=== PATIENT | male | born 1970 | race Caucasian/White ===

== ENCOUNTER 2022-09-12 15:54 | Inpatient (IN) | payer OTHER, SELFPAY ==
--- NOTE | 2022-09-12 | ECG_ITS ---
Test Reason : PRE OP Blood Pressure : / mmHG Vent. Rate : 064 BPM Atrial Rate : 064 BPM P-R Int : 190 ms QRS Dur : 102 ms QT Int : 400 ms P-R-T Axes : 051 -06 025 degrees QTc Int : 412 ms Normal sinus rhythm Moderate voltage criteria for LVH, may be normal variant ( R in aVL , [place] product ) Borderline ECG No previous ECGs available Referred By: Lubna Gutierrez Electronically Signed By:MAYA KOHLI
--- NOTE | ~2022-09-12 | US_ITS ---
EXAMINATION: US VENOUS ULTRASOUND WITH DOPPLER LOWER EXTREMITY, LEFT CLINICAL INFORMATION: Edema COMPARISON: None available. TECHNIQUE: Ultrasound of the deep veins is performed from the hip to the calf with compression sonography and color and pulse Doppler assessment. Spectral analysis with color-flow imaging is performed. FINDINGS: Extensive occlusive deep venous thrombosis is noted extending from the proximal femoral vein, to the popliteal vein and calf veins. US/US venous duplex LE LT IMPRESSION: Extensive occlusive deep venous thrombosis is noted extending from the proximal femoral vein, to the popliteal vein and calf veins. These critical results were discussed with Isamar Crocker NP by telephone at 09/12/2022 5:24 PM and it was ascertained that the content and urgency of the report was understood at the time of direct communication.
--- NOTE | ~2022-09-12 | XR_ITS ---
EXAMINATION: XR CHEST CLINICAL INFORMATION: Likely surgical procedure tomorrow for DVT COMPARISON: None available. TECHNIQUE: Frontal view of the chest was obtained. FINDINGS: The lungs are clear with no focal consolidation. No evidence of pneumothorax, pulmonary edema, or pleural effusions. The cardiomediastinal silhouette is unremarkable. No acute osseous findings. XR/XR chest 1V IMPRESSION: No acute cardiopulmonary findings.
[2022-09-12 16:01] VITALS: BP 158/96; PULSE 84; RESP 16; TEMP 36.7; O2SAT 96; BMI 21.5
--- NOTE | 2022-09-12 16:01 | ED.GENADULT ---
HPI - General Adult General Chief complaint: Extremity Injury, Lower Stated complaint: deep vein thrombosis on left leg? Time Seen by Provider: 09/12/22 16:48 Source: patient and RN notes reviewed Mode of arrival: ambulatory Limitations: no limitations History of Present Illness HPI narrative: This is a 52-year-old male, with a past medical history hemochromatosis and hypertension, presenting to the emergency department for evaluation of left calf pain x1 week. Patient reports that on August 17 he woke up and had some pain in his left ankle, which he attributed to self diagnosed Achilles tendinitis as he is very active, walking many miles, cycling, and running often. He has been seen by Physical therapy as well as his primary care physician for this. He states that about 1 week ago after having a 3 hour car ride to and from [place] he has had worsening pain, and swelling in his left calf. Patient denies any chest pain or shortness of breath. No history of personal DVT or PE in the past. He states that his family has an extensive history of pulmonary embolisms and DVTs. He is unsure if he or anyone in his family has clotting disorder. He also reports recent travel to and from [place] in July. No other complaints or concerns at this time. MD complaint: Left calf pain/swelling Location: lower extremity Radiation: non-radiation Severity: moderate Quality: aching Pain Consistency: constant Relieving factors: none Exacerbating factors: none Associated symptoms: denies other symptoms Treatments prior to arrival: none Related Data Home Medications Medication Instructions Recorded Confirmed amlodipine 2.5 mg tablet 2.5 mg PO DAILY 10/27/20 cetirizine 10 mg capsule (Zyrtec) 10 mg PO DAILY PRN 10/27/20 tamsulosin 0.4 mg capsule (Flomax) 0.4 mg PO DAILY 10/27/20 Allergies Allergy/AdvReac Type Severity Reaction Status Date / Time No Known Allergies Allergy Unverified 11/01/19 19:04 [No Known Allergies*] Review of Systems Review of Systems: Yes all other systems are reviewed and are negative Constitutional: Constitutional: Reports as per HPI [facility] Past Medical History Medical History (Updated 09/12/22 @ 18:32 by OFELIA Martins) Nephrolithiasis, uric acid Social History Social History Advance Directives: No Advance Directives Information Provided: Yes Physical Exam ED Vital Signs: Vital Signs - 24 hr 09/12/22 16:01 09/12/22 18:36 Temperature 98.1 F 97.6 F Pulse Rate 84 74 Respiratory Rate 16 18 Blood Pressure 158/96 H 151/86 H Pulse Oximetry 96 98 Oxygen Delivery Method Room Air BMI result Body Mass Index 22.0 Const General: cooperative, comfortable and no acute distress Orientation/consciousness: patient oriented x3 Limitations: no limitations HENMT Head: Yes normal to inspection, Yes normocephalic and Yes atraumatic Ears: hearing grossly normal bilaterally General nose exam: Normal external nose present Face and sinus: Yes normal facial exam Mouth: Normal oral and palatal mucosa present, oropharynx normal and moist mucous membranes Throat: Yes posterior oropharynx normal Eyes General: appearance normal, both eyes and all related structures Eyelids: Yes eyelids normal Conjunctivae: conjunctivae normal Sclerae: sclerae normal Pupils: Equal, round and reactive pupils present EOM: EOMs intact bilaterally Neck Neck: Yes normal visual inspection, Yes full ROM and Yes no lymphadenopathy Lymphatic: no lymphadenopathy noted Chest Chest palpation & inspection: normal inspection of the chest Resp Effort & Inspection: normal respiratory effort and able to speak in complete sentences Auscultation: clear to auscultation bilaterally, no crackles, no rales, no rhonchi and no wheezes Cardio Rate: regular rate Rhythm: regular rhythm Heart sounds: S1 normal heart sound present and S2 normal heart sound present GI Inspection: Yes normal to inspection Skin General skin exam: no rashes or lesions noted Trauma: no lacerations or abrasions Wounds: no wounds Neuro General: patient oriented x3 and moves all extremities Cranial nerves: Yes Equal, round and reactive pupils present Extrem Other: Left calf with diffuse tenderness throughout, left calf is very swollen compared to the left, no palpable cords. Positive Homans sign General: Yes normal to inspection Right upper extremity: normal to inspection Left upper extremity: normal to inspection Right lower extremity: normal to inspection Left lower extremity: normal to inspection Course Course Course Narrative: This is rapid medical exam. Deferred additional HPI, ROS, PE to primary provider. 52 yo make here with left leg swelling x 1week. Diagnosed with achilles tendinopathy 2 weeks ago. However, one week ago went on several hour car ride and now has swelling and pain. Has family history of DVT Will check labs, US VSS Reevaluation(s) Reevaluation #1: Received critical result of extensive DVT extending from the proximal femoral vein to the popliteal vein and calf veins. Discussed case with Dr. Vega, who states that patient may be a good candidate for clot retrieval. Recommend starting heparin drip and admit to Medicine. I discussed this with patient and fiancee at bedside. All questions were answered. Patient agrees to hospital admission. Transfer of care initiated. Time: 17:36 Reevaluation #2: Spoke to hospitalist, Dr. Maradiaga for initiation and transfer of care. Time: 18:30 Medications Administered Generic Name Dose Route Start Last Admin Trade Name Freq PRN Reason Stop Dose Admin Heparin Sodium/Sodium Chloride 25,000 unit in 250 mls @ 0 mls/hr 09/12/22 19:30 09/12/22 19:38 Heparin Sodium,Porcine/1/2ns IVCONT 14 units/kg/hr .Q0M BREE 11.16 mls/hr Administration Protocol Per Protocol Discontinued Medications Generic Name Dose Route Start Last Admin Trade Name Freq PRN Reason Stop Dose Admin Heparin Sodium (Porcine) 6,200 unit 09/12/22 18:20 09/12/22 19:35 Heparin Sodium,Porcine 5,000 Unit/Ml Vial 80 unit/kg (6200 unit) 09/12/22 18:21 6,200 unit IVPUSH Administration ONCE ONE Medical Decision Making Medical Decision Making [facility] Narrative: 52-year-old male presenting to the emergency department for evaluation left calf pain and swelling x1 week. Patient has had ongoing intermittent lower leg cramping and pain since August 17. Patient has no chest pain or shortness of breath. On arrival, vital signs within normal limits. Left calf obviously edematous, no palpable cords, positive Homans sign. Physical exam findings concerning for DVT. Plan labs, ultrasound LLE Differential Diagnosis Differential Diagnoses: The differential diagnosis associated with the presentation includes DVT, contusion, hematoma, cellulitis Admission/Observation Consideration of admission/observation: Escalation of care including admission/observation considered Patient will be admitted secondary to extensive DVT noted on ultrasound. Lab Data [facility] Lab Attestation statement: I reviewed the patient's lab results. No leukocytosis, stable H&H 09/12/22 16:28 09/12/22 16:28 Labs: Lab Results 09/12/22 09/12/22 09/12/22 Range/Units 16:28 16:28 16:28 WBC 7.7 (4.8-10.8) X10*3/uL RBC 4.53 L (4.60-5.80) X10*6/uL Hgb 14.9 (14.0-18.0) g/dl Hct 42.6 (42.0-52.0) % MCV 94.0 (80.0-98.0) fL MCH 32.9 (27.0-33.0) pg MCHC 35.0 (31.0-36.0) g/dl RDW 11.9 (11.0-16.0) % Plt Count 205 (160-400) X10*3/uL MPV 10.7 (9.4-12.4) fL Immature Gran % (Auto) 0.3 (0.0-0.4) % Neut % (Auto) 66.5 (45-73) % Lymph % (Auto) 19.7 L (20-40) % [place] % (Auto) 10.4 (2-11) % Eos % (Auto) 2.7 (0-4) % Baso % (Auto) 0.4 (0-2) % Lymph # (Auto) 1.5 (1.2-4.9) X10*3/uL [place] # (Auto) 0.8 (0.1-1.2) X10*3/uL Eos # (Auto) 0.2 (0.0-0.4) X10*3/uL Baso # (Auto) 0.0 (0.0-0.2) X10*3/uL Abs Immat Gran (auto) 0.02 (0.00-0.03) X10*3/uL Absolute Neuts (auto) 5.1 (2.0-8.3) x10*3/uL Absolute Nucleated RBC 0.000 (0.0-0.012) X10*3/uL Nucleated RBC % (auto) 0.0 (0.0-0.2) /100WBC PT 12.9 (11.1-13.3) SEC INR 1.1 (0.9-1.1) APTT 35.7 (26.0-36.4) SEC aPTT Heparin Protocol (53-77.9) SEC Sodium 141 (135-145) mmol/L Potassium 3.9 (3.3-5.1) mmol/L Chloride 106 (96-108) mmol/L Carbon Dioxide 23 (22-29) mmol/L Anion Gap 16 (12-20) BUN 13 (9-16) mg/dL Creatinine 0.81 (0.5-1.4) mg/dL Estim Creat Clear Calc 117.7 Estimated GFR > 60 Random Glucose 111 (60-115) mg/dL Calcium 10.1 (8.4-10.2) mg/dL Total Bilirubin 0.5 (0.0-1.0) mg/dL Direct Bilirubin 0.2 (0.0-0.5) mg/dL AST 17 (5-37) U/L ALT 14 (0-40) U/L Alkaline Phosphatase 57 (39-117) U/L Total Protein 6.8 (6.5-8.0) g/dL Albumin 4.1 (3.5-5.0) g/dL 09/12/22 09/12/22 09/12/22 Range/Units 18:46 18:46 18:46 WBC 9.0 (4.8-10.8) X10*3/uL RBC 4.57 L (4.60-5.80) X10*6/uL Hgb 14.9 (14.0-18.0) g/dl Hct 42.4 (42.0-52.0) % MCV 92.8 (80.0-98.0) fL MCH 32.6 (27.0-33.0) pg MCHC 35.1 (31.0-36.0) g/dl RDW 11.9 (11.0-16.0) % Plt Count 214 (160-400) X10*3/uL MPV 10.8 (9.4-12.4) fL Immature Gran % (Auto) (0.0-0.4) % Neut % (Auto) (45-73) % Lymph % (Auto) (20-40) % [place] % (Auto) (2-11) % Eos % (Auto) (0-4) % Baso % (Auto) (0-2) % Lymph # (Auto) (1.2-4.9) X10*3/uL [place] # (Auto) (0.1-1.2) X10*3/uL Eos # (Auto) (0.0-0.4) X10*3/uL Baso # (Auto) (0.0-0.2) X10*3/uL Abs Immat Gran (auto) (0.00-0.03) X10*3/uL Absolute Neuts (auto) (2.0-8.3) x10*3/uL Absolute Nucleated RBC 0.000 (0.0-0.012) X10*3/uL Nucleated RBC % (auto) 0.0 (0.0-0.2) /100WBC PT 12.8 (11.1-13.3) SEC INR 1.1 (0.9-1.1) APTT 33.9 (26.0-36.4) SEC aPTT Heparin Protocol 34.1 L (53-77.9) SEC Sodium (135-145) mmol/L Potassium (3.3-5.1) mmol/L Chloride (96-108) mmol/L Carbon Dioxide (22-29) mmol/L Anion Gap (12-20) BUN (9-16) mg/dL Creatinine (0.5-1.4) mg/dL Estim Creat Clear Calc Estimated GFR Random Glucose (60-115) mg/dL Calcium (8.4-10.2) mg/dL Total Bilirubin (0.0-1.0) mg/dL Direct Bilirubin (0.0-0.5) mg/dL AST (5-37) U/L ALT (0-40) U/L Alkaline Phosphatase (39-117) U/L Total Protein (6.5-8.0) g/dL Albumin (3.5-5.0) g/dL Radiology Impression Discussion of test interpretation with radiology: I have reviewed the radiologist's reading. Radiologist Impression: EXAMINATION:? US VENOUS ULTRASOUND WITH DOPPLER LOWER EXTREMITY, LEFT CLINICAL INFORMATION:? Edema COMPARISON:? None available. TECHNIQUE: Ultrasound of the deep veins is performed from the hip to the calf with compression sonography and color and pulse Doppler assessment. Spectral analysis with color-flow imaging is performed. FINDINGS: Extensive occlusive deep venous thrombosis is noted extending from the proximal femoral vein, to the popliteal vein and calf veins. US/US venous duplex LE LT IMPRESSION: Extensive occlusive deep venous thrombosis is noted extending from the proximal femoral vein, to the popliteal vein and calf veins. ? These critical results were discussed with Isamar Crocker NP by telephone at 09/12/2022 5:24 PM and it was ascertained that the content and urgency of the report was understood at the time of direct communication. ? ? Dictated By: Aleksandra Diamond MD Signed By: <Electronically signed by Aleksandra Diamond MD in OV> 09/12/22 1725 DD/ 1645 TD/TT:? 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 Time includes review of lab data, radiology results, discussion with consultants, and monitoring for potential decompensation. Intervention performed as documented. Discharge Plan Discharge Clinical Impression: DVT (deep venous thrombosis) Patient Disposition: Admitted As Inpatient
[2022-09-12 16:34] LABS: MANUAL DIFF FLAG NO
[2022-09-12 16:36] LABS: Basophils Percent Auto 0.4 % (0-2); Eosinophils Absolute Auto 0.2 X10*3/uL (0.0-0.4); Eosinophils Percent Auto 2.7 % (0-4); Hematocrit 42.6 % (42.0-52.0); Hemoglobin 14.9 g/dl (14.0-18.0); Imm Gran Abs Auto 0.02 X10*3/uL (0.00-0.03); Imm Gran Pct Auto 0.3 % (0.0-0.4); Lymphocytes Absolute Auto 1.5 X10*3/uL (1.2-4.9); Lymphocytes Percent Auto 19.7 % (20-40); Mean Corpuscular Hemoglobin 32.9 pg (27.0-33.0); Mean Platelet Volume 10.7 fL (9.4-12.4); Monocytes Absolute Auto 0.8 X10*3/uL (0.1-1.2); Monocytes Percent Auto 10.4 % (2-11); Neutrophils Absolute Auto 5.1 x10*3/uL (2.0-8.3); Neutrophils Percent Auto 66.5 % (45-73); Platelet Count 205 X10*3/uL (160-400); Red Blood Count 4.53 X10*6/uL (4.60-5.80); Red Cell Distribution Width 11.9 % (11.0-16.0); White Blood Count 7.7 X10*3/uL (4.8-10.8)
[2022-09-12 16:41] LABS: INTERNATIONAL NORM RATIO 1.1 (0.9-1.1); Prothrombin Time 12.9 SEC (11.1-13.3)
[2022-09-12 16:56] LABS: Alanine Aminotransferase 14 U/L (0-40); Albumin Level 4.1 g/dL (3.5-5.0); Alkaline Phosphatase 57 U/L (39-117); Anion Gap 16 (12-20); Aspartate Amino Transferase 17 U/L (5-37); Bilirubin Direct 0.2 mg/dL (0.0-0.5); Bilirubin Total 0.5 mg/dL (0.0-1.0); Blood Urea Nitrogen 13 mg/dL (9-16); Calcium 10.1 mg/dL (8.4-10.2); Carbon Dioxide 23 mmol/L (22-29); Chloride 106 mmol/L (96-108); Creatinine Clr Calc Pharmacy 117.7; Estimated Glomerular Filt Rate > 60; Glucose Random 111 mg/dL (60-115); Potassium 3.9 mmol/L (3.3-5.1); Sodium 141 mmol/L (135-145); Total Protein 6.8 g/dL (6.5-8.0)
--- NOTE | 2022-09-12 17:43 | PC.NURSE ---
REPORT GIVEN TO RU Hickman RN PT TO BE MOVED TO ED 19
[2022-09-12 18:31] LABS: Partial Thromboplastin Time 35.7 SEC (26.0-36.4)
[2022-09-12 18:36] VITALS: BP 151/86; PULSE 74; RESP 18; TEMP 36.4; O2SAT 98
--- NOTE | 2022-09-12 18:47 | P.HPHOSP_ITS ---
Patient seen and examined at bedside. I agree with KYRIE assessment and plan. Patient comes in with DVT. No concern for PE at this time. Patient being seen by vascular surgery in a.m. for clot removal. Continue anticoagulation. For full H&P please see below History of Present Illness Date of Service: 09/12/22 Attending physician on admission: Martinez Rizo Chief Complaint: Left calf pain Pt is a 52-year-old male with a PMH significant for?hemochromatosis, HTN, BPH, and seasonal allergies who presents to the ED with?worsening left calf pain for the past week. Patient began having left lower extremity pain on August 17 when he noticed tenderness to his lower left calf. No noticeable swelling. Patient is an avid cyclist who cycles between 8,000-9,000 miles per year and walks 50-100 miles per month. Patient thought that he over did it and self diagnosed with Achilles tendinitis. Patient continue to cycle and be active with only minor limitations. Ten days later on 08/27 patient saw a nurse practitioner at his primary care provider's office who also diagnosed him with Achilles tendinitis and referred him to physical therapy. His first PT appointment was on . Patient also reports on Tuesday he drove 3 hours to [place] and then back 3 hours the next day. After that drive he experienced noticeable swelling and increased pain in his left calf. Of note patient has extensive family history of clotting disorders: His father had a PE, and his mother, sister, maternal grandmother, and maternal great and all had DVTs. Apparently his sister and mother have had workup for clotting disorders but with no formal diagnoses. He otherwise has no acute medical complaints at this time. Patient denies shortness of breath or pleuritic chest pain. Denies chest pain/pressure, palpitations. No fever, chills, nausea, vomiting, diarrhea, abdominal pain. No history of smoking. In the ED pt was afebrile but slightly hypertensive, at 158/96 satting at 98% on RA. Labs were grossly unremarkable. Venous duplex ultrasound of left lower leg phone extensive occlusive DVT extending from proximal femoral vein to the popliteal vein and calf veins. Pt was treated with heparin drip and vascular surgery consulted, who thought patient might be a candidate for clot retrieval. Pt will be admitted to the hospital for treatment of left DVT with heparin drip and likely surgical procedure. Review of Systems Review of Systems: Left calf swelling and tenderness Left Achilles tendon tenderness Denies shortness of breath Note pleuritic chest pain Denies chest pain/pressure, palpitations No fever, chills, nausea, vomiting, diarrhea, abdominal pain Yes all other systems are reviewed and are negative [facility] Medical History Nephrolithiasis, uric acid Social History Advance Directives: No Advance Directives Information Provided: Yes Meds Allergies Allergy/AdvReac Type Severity Reaction Status Date / Time No Known Allergies Allergy Unverified 11/01/19 19:04 [No Known Allergies*] Active Medications: Current Medications Heparin Sodium (Porcine) (Heparin Sodium,Porcine 5,000 Unit/Ml Vial) 3,100 unit 40 unit/kg (3100 unit) IVPUSH PROTOCOL BOLUS PRN; Protocol PRN Reason: 40 unit/kg - Heparin Protocol Heparin Sodium (Porcine) (Heparin Sodium,Porcine 5,000 Unit/Ml Vial) 6,200 unit 80 unit/kg (6200 unit) IVPUSH PROTOCOL BOLUS PRN; Protocol PRN Reason: 80 unit/kg - Heparin Protocol Heparin Sodium/Sodium Chloride (Heparin Sodium,Porcine/1/2ns) 25,000 unit in 250 mls @ 0 mls/hr IVCONT .Q0M BREE; Protocol Pharmacy Consult (Consult Rx Perform Med Rec) 1 each MISCELLANE ONCE PRN PRN Reason: Consult order Home Medications Medication Instructions Recorded Confirmed Last Taken Type amlodipine 2.5 mg tablet 2.5 mg PO DAILY 10/27/20 Unknown History cetirizine 10 mg capsule (Zyrtec) 10 mg PO DAILY PRN 10/27/20 Unknown History tamsulosin 0.4 mg capsule (Flomax) 0.4 mg PO DAILY 10/27/20 Unknown History Physical Exam Vital Signs and Narrative: Vital Signs: Last Vital Signs Temp 97.6 F 09/12/22 18:36 Pulse 74 09/12/22 18:36 Resp 18 09/12/22 18:36 BP 151/86 H 09/12/22 18:36 Pulse Ox 98 09/12/22 18:36 O2 Del Method Room Air 09/12/22 16:01 BMI result Body Mass Index 21.5 General: AOx3, no acute distress Resp: CTA bilaterally CVS: S1, S2, RRR GI: +BS, NT, no distention Skin: No rash Neuro: Cranial nerves II-XII grossly intact bilaterally. Motor grossly intact bilaterally Extremities: Left calf swelling and tenderness. Psych: Appropriate affect Results Labs 09/12/22 16:28 09/12/22 16:28 Labs: Laboratory Results - last 24 hr 09/12/22 09/12/22 09/12/22 16:28 16:28 16:28 MCV 94.0 MCH 32.9 MCHC 35.0 RDW 11.9 Plt Count 205 MPV 10.7 Immature Gran % (Auto) 0.3 Neut % (Auto) 66.5 Lymph % (Auto) 19.7 L [place] % (Auto) 10.4 Eos % (Auto) 2.7 Baso % (Auto) 0.4 Lymph # (Auto) 1.5 [place] # (Auto) 0.8 Eos # (Auto) 0.2 Baso # (Auto) 0.0 Abs Immat Gran (auto) 0.02 Absolute Neuts (auto) 5.1 Absolute Nucleated RBC 0.000 Nucleated RBC % (auto) 0.0 PT 12.9 INR 1.1 APTT 35.7 Anion Gap 16 Estim Creat Clear Calc 117.7 Estimated GFR > 60 Random Glucose 111 Calcium 10.1 Total Bilirubin 0.5 Direct Bilirubin 0.2 AST 17 ALT 14 Alkaline Phosphatase 57 Total Protein 6.8 Albumin 4.1 Imaging Radiologist's Impressions: Impressions Venous Duplex 09/12/22 16:45 IMPRESSION: Extensive occlusive deep venous thrombosis is noted extending from the proximal femoral vein, to the popliteal vein and calf veins. These critical results were discussed with Isamar Crocker NP by telephone at 09/12/2022 5:24 PM and it was ascertained that the content and urgency of the report was understood at the time of direct communication. Assessment and Plan (1) DVT (deep venous thrombosis): Status: Acute Plan t is a 52-year-old male with a PMH significant for?hemochromatosis, HTN, BPH, and seasonal allergies who presents to the ED with?worsening left calf pain for the past week. Patient will be admitted to the hospital for treatment of left DVT with heparin drip and likely surgical procedure. DVT of left lower extremity Venous duplex ultrasound found extensive occlusive DVT extending from proximal femoral vein to popliteal vein and calf veins Unclear etiology: pt is very active, cycles 8-9,000 miles each year, walks 50- 100 miles a month Most likely has a hereditary component: father had PE, mother, sister, maternal grandmother, maternal aunt all had DVTs Pt not complaining of pleuritic chest pain, no SOB, not tachycardic: PE unlikely, CTA not indicated Pt placed on heparin drip, will continue Vascular surgery consult Monitor on telemetry NPO after midnight Will check EKG, CXR HTN Continue amlodipine Seasonal allergies Continue cetirizine BPH Continue tamsulosin Full Code Attending:?Dr. Rizo DVT Prophylaxis: Pt of heparin drip Pt will require a hospitalization of at least two nights for treatment of?left DVT with heparin drip and surgical procedure. Time Spent With Patient Time: Total time managing care of this patient today ____ minutes. Quality Stroke Does the patient have a stroke diagnosis?: No VTE Prior VTE?: No VTE Risk Level:: Medical - moderate - high VTE Device Contraindication: Treatment Not Indicated VTE Drug Contraindication: N/A - Med Ordered
[2022-09-12 18:52] VITALS: BMI 22.0
[2022-09-12 19:11] LABS: INTERNATIONAL NORM RATIO 1.1 (0.9-1.1); Prothrombin Time 12.8 SEC (11.1-13.3)
[2022-09-12 19:13] LABS: PTT Heparin Drip 34.1 SEC (53-77.9)
[2022-09-12 19:14] LABS: Partial Thromboplastin Time 33.9 SEC (26.0-36.4)
[2022-09-12 19:22] LABS: Hematocrit 42.4 % (42.0-52.0); Hemoglobin 14.9 g/dl (14.0-18.0); Mean Corpuscular HGB Conc 35.1 g/dl (31.0-36.0); Mean Corpuscular Hemoglobin 32.6 pg (27.0-33.0); Mean Corpuscular Volume 92.8 fL (80.0-98.0); Mean Platelet Volume 10.8 fL (9.4-12.4); Platelet Count 214 X10*3/uL (160-400); Red Blood Count 4.57 X10*6/uL (4.60-5.80); Red Cell Distribution Width 11.9 % (11.0-16.0)
[2022-09-12] MEDS: Heparin Sodium,Porcine 5,000 UNIT/ML VIAL 6200 UNIT IVPUSH (19:35)
[2022-09-12] MEDS: Heparin Sodium,Porcine/1/2NS 25,000 UNIT/250 ML IV.SOLN 11.16 UNIT IVCONT (19:38)
--- NOTE | 2022-09-12 20:23 | PC.NURSE ---
pt aox4, ambulatory. reporting no pain at this time. heparin drip and bolus given per protocol. PTT HD redraw ordered. will CTM
[2022-09-13] VITALS (10 sets, daily range): BP systolic 135–159; BP diastolic 75–92; PULSE 61–79; RESP 16–20; TEMP 36.1–37.2; O2SAT 93–97; BMI 22.0
[2022-09-13 02:10] LABS: PTT Heparin Drip 108.6 SEC (53-77.9)
--- NOTE | 2022-09-13 02:24 | PC.NURSE ---
Rn received critical PTT from lab, reported it to Hospitalist and paused the pt's heparin drip per protocol. RN called Admitting nurse to make her aware as report had been already been given. RN reviewed heparin protocol with admitting RN to make her aware of protocol regarding PTTs >108 and she verbalized understanding. RN to escort pt up to floor with EDT to review pump with RN.
[2022-09-13 03:59] LABS: PTT Heparin Drip 48.9 SEC (53-77.9)
--- NOTE | 2022-09-13 07:05 | PHA.MEDREC ---
Pharmacy Consult ? Medication Reconciliation Pharmacy has reviewed the medication reconciliation done by RN.
[2022-09-13 07:09] LABS: Hematocrit 43.4 % (42.0-52.0); Hemoglobin 15.1 g/dl (14.0-18.0); Mean Corpuscular HGB Conc 34.8 g/dl (31.0-36.0); Mean Corpuscular Hemoglobin 32.8 pg (27.0-33.0); Mean Corpuscular Volume 94.1 fL (80.0-98.0); Mean Platelet Volume 10.7 fL (9.4-12.4); Platelet Count 215 X10*3/uL (160-400); Red Blood Count 4.61 X10*6/uL (4.60-5.80); Red Cell Distribution Width 11.9 % (11.0-16.0)
[2022-09-13 07:10] LABS: Hematocrit 42.3 % (42.0-52.0); Hemoglobin 14.8 g/dl (14.0-18.0); Mean Corpuscular Hemoglobin 32.5 pg (27.0-33.0); Mean Corpuscular Volume 92.8 fL (80.0-98.0); Mean Platelet Volume 10.5 fL (9.4-12.4); Platelet Count 196 X10*3/uL (160-400); Red Blood Count 4.56 X10*6/uL (4.60-5.80); Red Cell Distribution Width 11.9 % (11.0-16.0); White Blood Count 7.5 X10*3/uL (4.8-10.8)
[2022-09-13 07:13] LABS: INTERNATIONAL NORM RATIO 1.1 (0.9-1.1); Prothrombin Time 13.4 SEC (11.1-13.3)
[2022-09-13 07:22] LABS: Anion Gap 17 (12-20); Blood Urea Nitrogen 11 mg/dL (9-16); Carbon Dioxide 23 mmol/L (22-29); Chloride 106 mmol/L (96-108); Creatinine Clr Calc Pharmacy 129.8; Estimated Glomerular Filt Rate > 60; Glucose Random 93 mg/dL (60-115); Potassium 3.4 mmol/L (3.3-5.1); Sodium 143 mmol/L (135-145)
--- NOTE | 2022-09-13 08:48 | MHC.CM.PN ---
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 Home/self care is the goal and CM has initiated and will follow for dc planning. Patient is brenda corral'maureen x5 and his PCP is Dr. Vicky Spear.
[2022-09-13] MEDS: 0.9 % Sodium Chloride Flush 3 ML SYRINGE IVFLUSH ×2 (09:25→20:18)
[2022-09-13] MEDS: 0.9 % Sodium Chloride 1,000 ML 100 ML IVCONT ×2 (09:25→20:16)
--- NOTE | 2022-09-13 10:22 | PM.CNGS ---
History of Present Illness Consult details Consult date: 09/13/22 Reason for consult: other (DVT) Narrative: Very pleasant 52-year-old gentleman presents to the emergency room yesterday with acute onset DVT. Upon discussion with him he actually relates this back to an event when he was in [place] over August 17. He had done an extensive amount of walking and bike riding. He reports some sort of left Achilles discomfort. He had continued to exercise and walk in particular bike riding since that time. He did have a car ride back and forth during that. But seem to be doing okay. On the he had driven about 2-3 hours down to [place] and on return he noticed increased discomfort of the left lower extremity and swelling. He had observed it for several days and then this past Tuesday decided to come to the emergency room. At that time it was discovered that he had a DVT which was quite extensive from the calf on up in to the proximal femoral region. He was started on a heparin drip in subsequently admitted. Of note has sister mother and grandmother rich have prior in addition father with a of pulmonary embolism. Review of Systems Constitutional: Constitutional: Reports as per HPI ENT: Reports system reviewed and no additional complaints, except as documented Cardiovascular: Cardiovascular: Denies chest pain, Denies chest pain at rest and Denies chest pain with activity Respiratory: Respiratory: Denies chest congestion and Denies cough Gastrointestinal: Gastrointestinal: Reports no additional gastrointestinal complaints Musculoskeletal: Musculoskeletal: Denies abnormal gait Integumentary/Breasts: Skin/Breast: Reports pruritus and Denies wounds Neurologic: Reports system reviewed and no additional complaints, except as documented and Denies abnormal gait Psychiatric: Psychiatric: Denies no additional psychiatric complaints [facility] Past Medical History Medical History Nephrolithiasis, uric acid Social History Social History Household Members: Spouse Housing: House Patient Tobacco Use Status: Never used Tobacco Use of substances other than those prescribed or required for medical reasons: No Currently Displaying Signs/Symptoms of Drug Intoxication Withdrawal: No Any prior treatment program specific to substance use: No Have you been hit, kicked, punched, or otherwise hurt by someone within the past year? If so, by whom?: No Do you feel safe in your current relationship?: Yes Is there a partner from a previous relationship who is making you feel unsafe now?: No Are you made to feel afraid or neglected: No Advance Directives: No Advance Directives Information Provided: Yes Do you have thoughts of harming others: None Do you have a plan to hurt others: No Plan Recently lost weight without trying: No Eating poorly because of decreased appetite: No Nutrition Risks: No Nutritional Risk Poor oral hygiene: No service: No Meds Allergies Allergy/AdvReac Type Severity Reaction Status Date / Time No Known Allergies Allergy Unverified 11/01/19 19:04 [No Known Allergies*] Active Medications: Current Medications Acetaminophen (Acetaminophen 325 Mg Tablet) 650 mg PO Q6H PRN PRN Reason: Pain, Mild (Pain Scale 1-3) Docusate Sodium (Docusate Sodium 100 Mg Capsule) 100 mg PO DAILY PRN PRN Reason: Constipation Heparin Sodium (Porcine) (Heparin Sodium,Porcine 5,000 Unit/Ml Vial) 3,200 unit 40 unit/kg (3200 unit) IVPUSH PROTOCOL BOLUS PRN; Protocol PRN Reason: 40 unit/kg - Heparin Protocol Heparin Sodium (Porcine) (Heparin Sodium,Porcine 5,000 Unit/Ml Vial) 6,400 unit 80 unit/kg (6400 unit) IVPUSH PROTOCOL BOLUS PRN; Protocol PRN Reason: 80 unit/kg - Heparin Protocol Heparin Sodium/Sodium Chloride (Heparin Sodium,Porcine/1/2ns) 25,000 unit in 250 mls @ 0 mls/hr IVCONT .Q0M [facility]; Protocol Last Titration: 09/13/22 04:32 Dose: 10 units/kg/hr, 7.97 mls/hr Sodium Chloride (Ns) 1,000 mls @ 100 mls/hr IVCONT .Q10H [facility] Last Admin: 09/13/22 09:25 Dose: 100 mls/hr Ondansetron HCl (Ondansetron Hcl 4 Mg/2 Ml Vial) 4 mg IVPUSH Q8H PRN PRN Reason: Nausea and Vomiting Pharmacy Consult (Consult Rx Perform Med Rec) 1 each MISCELLANE ONCE PRN PRN Reason: Consult order Sodium Chloride (0.9 % Sodium Chloride Flush 3 Ml Syringe) [facility] Last Admin: 09/13/22 09:25 Dose: 3 ml Home Medications Medication Instructions Recorded Confirmed Last Taken Type amlodipine 2.5 mg tablet 2.5 mg PO DAILY 10/27/20 09/13/22 Unknown History cetirizine 10 mg capsule (Zyrtec) 10 mg PO DAILY PRN Allergy Symptoms 10/27/20 09/13/22 Unknown History Physical Exam Vital Signs: Vital Signs: Last Vital Signs Temp 99.0 F 09/13/22 07:26 Pulse 66 09/13/22 07:26 Resp 19 09/13/22 07:26 BP 153/87 H 09/13/22 07:26 Pulse Ox 96 09/13/22 07:26 O2 Del Method Room Air 09/13/22 07:26 BMI result Body Mass Index 22.0 Const: General: cooperative, healthy appearing and comfortable Orientation/consciousness: oriented to person, oriented to place and oriented to time Neck: Carotids: no bruits Chest: Chest palpation & inspection: normal inspection of the chest and normal palpation of entire chest wall Resp: Effort & Inspection: normal respiratory effort and able to speak in complete sentences Cardio: Rate: regular rate Heart sounds: S1 normal heart sound present and S2 normal heart sound present Peripheral pulses: Peripheral pulses 2+ throughout GI: Inspection: Yes normal to inspection Skin: Other: +2 edema, left greater than right General skin exam: dry skin Neuro: General: oriented to person, oriented to place and oriented to time Extrem: Right lower extremity: full ROM, normal capillary refill and edema Left lower extremity: full ROM, normal capillary refill and edema Psych: Mental Status: mental status grossly normal Results Labs 09/13/22 06:37 09/13/22 05:42 Labs: Abnormal lab results 09/12/22 09/12/22 09/12/22 Range/Units 16:28 18:46 18:46 RBC 4.53 L 4.57 L (4.60-5.80) X10*6/uL Lymph % (Auto) 19.7 L (20-40) % PT (11.1-13.3) SEC aPTT Heparin Protocol 34.1 L (53-77.9) SEC 09/13/22 09/13/22 09/13/22 Range/Units 01:44 03:21 05:42 RBC 4.56 L (4.60-5.80) X10*6/uL Lymph % (Auto) (20-40) % PT (11.1-13.3) SEC aPTT Heparin Protocol 108.6 H* D 48.9 L D (53-77.9) SEC 09/13/22 Range/Units 05:42 RBC (4.60-5.80) X10*6/uL Lymph % (Auto) (20-40) % PT 13.4 H (11.1-13.3) SEC aPTT Heparin Protocol (53-77.9) SEC Short CBC 09/12/22 09/12/22 09/13/22 Range/Units 16:28 18:46 05:42 WBC 7.7 9.0 7.5 (4.8-10.8) X10*3/uL Hgb 14.9 14.9 14.8 (14.0-18.0) g/dl Hct 42.6 42.4 42.3 (42.0-52.0) % Plt Count 205 214 196 (160-400) X10*3/uL 09/13/22 Range/Units 06:37 WBC 8.0 (4.8-10.8) X10*3/uL Hgb 15.1 (14.0-18.0) g/dl Hct 43.4 (42.0-52.0) % Plt Count 215 (160-400) X10*3/uL BMP 09/12/22 09/13/22 16:28 05:42 Sodium 141 143 Potassium 3.9 3.4 Chloride 106 106 Carbon Dioxide 23 23 BUN 13 11 Creatinine 0.81 0.75 Calcium 10.1 10.0 Liver Function 09/12/22 Range/Units 16:28 Total Bilirubin 0.5 (0.0-1.0) mg/dL Direct Bilirubin 0.2 (0.0-0.5) mg/dL AST 17 (5-37) U/L ALT 14 (0-40) U/L Alkaline Phosphatase 57 (39-117) U/L Albumin 4.1 (3.5-5.0) g/dL All other labs normal. Assessment and Plan (1) DVT (deep venous thrombosis): Status: Acute Plan In short patient has acute onset DVT. I did review the imaging and it does appear to be extensive DVT including the tibial veins all the way into the popliteal and femoral. He will require mechanical venous thrombectomy. Risks benefits complications of the procedure were discussed in detail with the patient. He would like to proceed. Will schedule for later today. In addition as an outpatient would recommend Hematology-Oncology evaluation as he does have a positive family history for and recommendations regarding long-term anticoagulation Thank you for allowing us to assist in his care. If there are any questions or concerns please do not hesitate to contact us. Time Spent With Patient Time: Total time managing care of this patient today _60___ minutes. Includes coordination of care between the emergency room, hospitalists and interventional for scheduled procedure. In over 30 minutes was with direct contact upon discussion pathophysiology of the further. Procedures Date of Service Date of Service: 09/13/22
[2022-09-13 10:38] LABS: PTT Heparin Drip 46.6 SEC (53-77.9)
[2022-09-13] MEDS: Heparin Sodium,Porcine 5,000 UNIT/ML VIAL 3200 UNIT IVPUSH (11:01)
--- NOTE | 2022-09-13 12:23 | HO.PM.IMPN ---
Subjective Subjective Date of Service: 09/13/22 Interval History: Seen and evaluated this monfredy reporting pain in LLE feels anxious about surgical intervention tolerating heparin drip no other overnight concerns Review of Systems Review of Systems: Yes all other systems are reviewed and are negative Physical Exam Vital Signs: Vital Signs: Last Vital Signs Temp 98.8 F 09/13/22 11:44 Pulse 78 09/13/22 11:44 Resp 18 09/13/22 11:44 BP 159/87 H 09/13/22 11:44 Pulse Ox 97 09/13/22 11:44 O2 Del Method Room Air 09/13/22 11:44 BMI result Body Mass Index 22.0 Const: Other: Constitutional : Awake, interactive, not in distress Neck : Normal inspection, Supple Cardiovascular : RRR, no JVP, no lower extremity edema Respiratory : good bilateral air entry, no crackles, wheezes or rhonchi Gastrointestinal: soft, lax, Normal bowel sounds, Non tender Skin : Warm, Dry Extremities: LLE swollen, erythema and tenderness up to mid thigh Neurological : Alert & oriented x3, No focal deficit Objective Data Active Medications Acetaminophen (Acetaminophen 325 Mg Tablet) 650 mg PO Q6H PRN PRN Reason: Pain, Mild (Pain Scale 1-3) Amlodipine Besylate (Amlodipine Besylate 2.5 Mg Tablet) 2.5 mg PO DAILY [facility]; Protocol Docusate Sodium (Docusate Sodium 100 Mg Capsule) 100 mg PO DAILY PRN PRN Reason: Constipation Heparin Sodium (Porcine) (Heparin Sodium,Porcine 5,000 Unit/Ml Vial) 3,200 unit 40 unit/kg (3200 unit) IVPUSH PROTOCOL BOLUS PRN; Protocol PRN Reason: 40 unit/kg - Heparin Protocol Last Admin: 09/13/22 11:01 Dose: 3,200 unit Documented By: GABRIELLE Heparin Sodium (Porcine) (Heparin Sodium,Porcine 5,000 Unit/Ml Vial) 6,400 unit 80 unit/kg (6400 unit) IVPUSH PROTOCOL BOLUS PRN; Protocol PRN Reason: 80 unit/kg - Heparin Protocol Heparin Sodium/Sodium Chloride (Heparin Sodium,Porcine/1/2ns) 25,000 unit in 250 mls @ 0 mls/hr IVCONT .Q0M [facility]; Protocol Last Titration: 09/13/22 10:52 Dose: 12 units/kg/hr, 9.56 mls/hr Documented By: GABRIELLE Co-signed By: STEVEN Sodium Chloride (Ns) 1,000 mls @ 100 mls/hr IVCONT .Q10H [facility] Last Admin: 09/13/22 09:25 Dose: 100 mls/hr Documented By: GABRIELLE Loratadine (Loratadine 10 Mg Tablet) 10 mg PO DAILY PRN PRN Reason: Allergy Symptoms Ondansetron HCl (Ondansetron Hcl 4 Mg/2 Ml Vial) 4 mg IVPUSH Q8H PRN PRN Reason: Nausea and Vomiting Pharmacy Consult (Consult Rx Perform Med Rec) 1 each MISCELLANE ONCE PRN PRN Reason: Consult order Sodium Chloride (0.9 % Sodium Chloride Flush 3 Ml Syringe) 3 ml IVFLUSH QSHIFT [facility] Last Admin: 09/13/22 09:25 Dose: 3 ml Documented By: GABRIELLE Labs 09/13/22 06:37 09/13/22 05:42 Labs: Laboratory Results - last 24 hr 09/12/22 09/12/22 09/12/22 16:28 16:28 16:28 MCV 94.0 MCH 32.9 MCHC 35.0 RDW 11.9 Plt Count 205 MPV 10.7 Immature Gran % (Auto) 0.3 Neut % (Auto) 66.5 Lymph % (Auto) 19.7 L [place] % (Auto) 10.4 Eos % (Auto) 2.7 Baso % (Auto) 0.4 Lymph # (Auto) 1.5 [place] # (Auto) 0.8 Eos # (Auto) 0.2 Baso # (Auto) 0.0 Abs Immat Gran (auto) 0.02 Absolute Neuts (auto) 5.1 Absolute Nucleated RBC 0.000 Nucleated RBC % (auto) 0.0 PT 12.9 INR 1.1 APTT 35.7 aPTT Heparin Protocol Anion Gap 16 Estim Creat Clear Calc 117.7 Estimated GFR > 60 Random Glucose 111 Calcium 10.1 Total Bilirubin 0.5 Direct Bilirubin 0.2 AST 17 ALT 14 Alkaline Phosphatase 57 Total Protein 6.8 Albumin 4.1 09/12/22 09/12/22 09/12/22 18:46 18:46 18:46 MCV 92.8 MCH 32.6 MCHC 35.1 RDW 11.9 Plt Count 214 MPV 10.8 Immature Gran % (Auto) Neut % (Auto) Lymph % (Auto) [place] % (Auto) Eos % (Auto) Baso % (Auto) Lymph # (Auto) [place] # (Auto) Eos # (Auto) Baso # (Auto) Abs Immat Gran (auto) Absolute Neuts (auto) Absolute Nucleated RBC 0.000 Nucleated RBC % (auto) 0.0 PT 12.8 INR 1.1 APTT 33.9 aPTT Heparin Protocol 34.1 L Anion Gap Estim Creat Clear Calc Estimated GFR Random Glucose Calcium Total Bilirubin Direct Bilirubin AST ALT Alkaline Phosphatase Total Protein Albumin 09/13/22 09/13/22 09/13/22 01:44 03:21 05:42 MCV 92.8 MCH 32.5 MCHC 35.0 RDW 11.9 Plt Count 196 MPV 10.5 Immature Gran % (Auto) Neut % (Auto) Lymph % (Auto) [place] % (Auto) Eos % (Auto) Baso % (Auto) Lymph # (Auto) [place] # (Auto) Eos # (Auto) Baso # (Auto) Abs Immat Gran (auto) Absolute Neuts (auto) Absolute Nucleated RBC 0.000 Nucleated RBC % (auto) 0.0 PT INR APTT aPTT Heparin Protocol 108.6 H* D 48.9 L D Anion Gap Estim Creat Clear Calc Estimated GFR Random Glucose Calcium Total Bilirubin Direct Bilirubin AST ALT Alkaline Phosphatase Total Protein Albumin 09/13/22 09/13/22 09/13/22 05:42 05:42 06:37 MCV 94.1 MCH 32.8 MCHC 34.8 RDW 11.9 Plt Count 215 MPV 10.7 Immature Gran % (Auto) Neut % (Auto) Lymph % (Auto) [place] % (Auto) Eos % (Auto) Baso % (Auto) Lymph # (Auto) [place] # (Auto) Eos # (Auto) Baso # (Auto) Abs Immat Gran (auto) Absolute Neuts (auto) Absolute Nucleated RBC 0.000 Nucleated RBC % (auto) 0.0 PT 13.4 H INR 1.1 APTT aPTT Heparin Protocol Anion Gap 17 Estim Creat Clear Calc 129.8 Estimated GFR > 60 Random Glucose 93 Calcium 10.0 Total Bilirubin Direct Bilirubin AST ALT Alkaline Phosphatase Total Protein Albumin 09/13/22 10:19 MCV MCH MCHC RDW Plt Count MPV Immature Gran % (Auto) Neut % (Auto) Lymph % (Auto) [place] % (Auto) Eos % (Auto) Baso % (Auto) Lymph # (Auto) [place] # (Auto) Eos # (Auto) Baso # (Auto) Abs Immat Gran (auto) Absolute Neuts (auto) Absolute Nucleated RBC Nucleated RBC % (auto) PT INR APTT aPTT Heparin Protocol 46.6 L Anion Gap Estim Creat Clear Calc Estimated GFR Random Glucose Calcium Total Bilirubin Direct Bilirubin AST ALT Alkaline Phosphatase Total Protein Albumin Assessment and Plan (1) DVT (deep venous thrombosis): Status: Acute Plan A 52-year-old male with a PMH significant for?hemochromatosis, HTN, BPH, and seasonal allergies who presents to the ED with?worsening left calf pain for the past week. Patient will be admitted to the hospital for treatment of left DVT with heparin drip and likely surgical procedure. Extensive DVT of left lower extremity US found extensive occlusive DVT extending from proximal femoral vein to popliteal vein and calf veins Family Hx of VTEs, no reported diagnosis on heparin drip Vascular surgery consult, to do Thrombectomy Monitor on telemetry follow PTT HTN Continue amlodipine Seasonal allergies Continue cetirizine BPH Continue tamsulosin Full Code DVT Prophylaxis: heparin drip Pt will require a hospitalization of overnight for treatment of?left DVT with heparin drip and surgical procedure. Time Spent With Patient Time: Total time managing care of this patient today ____ minutes. Quality Stroke Does the patient have a stroke diagnosis?: No VTE Prior VTE?: No VTE Risk Level:: Medical - moderate - high VTE Device Contraindication: Treatment Not Indicated VTE Drug Contraindication: N/A - Med Ordered
--- NOTE | 2022-09-13 15:05 | W.PM.OPN ---
Operative Note Operative Note Date of Service: 09/13/22 Narrative: Angiogram report from [facility] Preoperative diagnosis: DVT Postoperative diagnosis: Same Procedure: 1. Ultrasound-guided left popliteal vein access 2. Inferior vena cavogram with venogram of left lower extremity 3. Left lower extremity mechanical venous thrombectomy (07272) 4. Radiologic supervision and interpretation Surgeon:Juventino Veag M.D., FACS, RPVI Loss Prevention Specialist:None Anesthesia: Local with moderate conscious sedation. Total intraservice moderate sedation time was 60 minutes. I monitored the patient's level of consciousness and physiologic status continuously throughout the procedure. Specimens:none Drains:none Estimated blood loss: Less than 10 ml Implant: None Indications: 52-year-old gentleman with family history DVT presented to the emergency room we with acute onset left lower extremity swelling. He was discovered to have extensive left lower extremity DVT. He now presents for mechanical thrombectomy. The patient has signed the informed consent after reviewing risks, complications, benefits, and alternatives previously discussed with the patient. The patient was given the opportunity to ask any additional questions or voice any concerns. All questions were answered to the patient's satisfaction. Procedure in detail: Patient was brought to the angiography suite prior to which a time-out was called for patient identification and site verification. The patient was placed in a prone position. Bilateral popliteal fossas were prepped out. We 1st accessed the left popliteal vein under ultrasound guidance. We then placed a percutaneous 4 Palestinian sheath. We were able to traverse the clot with a Glidewire Advantage. We confirmed true lumen with a trail Blazer catheter. At this time 6000 units of systemic heparin was administered. We daily did up the tract with a dilator. After 5 minutes of circulation time we then brought in the clot treaver over the wire system. We placed that clot tree for bur sheath and exposed this self expanding Nitinol mesh final to facilitate removal for large-bore side port rapid aspiration. Once this was accomplished we then advanced over the wire the clot treaver catheter with coring element in braided collection bad. This was then brought above into the inferior vena cava pass the occlusion and extracted back. We did 4 sequential passes. The main angles of the catheter were placed at 12:00 o'clock, 03:00 o'clock, 06:00 o'clock and 09:00 o'clock positions. After 8 subsequent pass the clot was removed and was flushed clear and brought in again through this area. Completion venogram demonstrated an excellent result with significant resolution of the thrombus. Once this was accomplished catheter wire sheath were removed. Direct pressure was held for 10 minutes. Patient tolerated the procedure well. Interpretation of films: 1. Ultrasound demonstrates appropriate puncture puncture. Image of which was saved. 2. Successful inferior vena cavogram and left leg venogram with evidence of thrombus. 3. Completion vena cavogram and left leg venogram demonstrated resolution and improvement of clot burden. Conclusion: 1. Successful left lower extremity mechanical venous thrombectomy of the iliac into superficial femoral and popliteal vein. 2. Anticoagulation status: Resume heparin and then may transition to oral anticoagulated as needed. This note is constructed using voice recognition software. While every effort has been made to ensure accuracy, tree and shrub worker errors may have been included. Thank you for allowing me to participate in the care of your patient. Yours sincerely, Juventino Vega MD, FACS, R.P.V.I.
--- NOTE | 2022-09-13 17:09 | PM.HEMONCCN ---
Subjective - Subjective Chief complaint: Consult for: Extensive DVT. Family history of hypercoagulable state. Patient: new to practice Consult date: 09/13/22 Requesting Physician: Mary. Primary Care Provider: Vicky Spear MD Medical Summary: DIAGNOSIS: EXTENSIVE LOWER EXTREMITY DVT. HPI - Consult Narrative Reason for consult: Consult for: Extensive lower extremity DVT. Narrative: Scott Wan is a 52 year old gentleman referred by Dr. Hernandez on account of extensive DVT. He presented to the ED with?worsening left calf pain for the past week. He started having left lower extremity pain on August 17 when he noticed tenderness to his lower left calf. No noticeable swelling. Patient is an avid cyclist who cycles between 8,000-9,000 miles per year and walks 50-100 miles per month. Patient thought that he over did it and self diagnosed with Achilles tendinitis. Patient continue to cycle and be active with only minor limitations. Ten days later on 08/27 patient saw a nurse practitioner at his primary care provider's office who also diagnosed him with Achilles tendinitis and referred him to physical therapy. His first PT appointment was on 09/03/2022. Patient also reports on Tuesday he drove 3 hours to [place] and then back 3 hours the next day. After that drive he experienced noticeable swelling and increased pain in his left calf. Of note patient has extensive family history of clotting disorders: His father had a PE, and his mother, sister, maternal grandmother, and maternal great and all had DVTs. Apparently his sister and mother have had workup for clotting disorders but with no formal diagnoses. He otherwise has no acute medical complaints at this time. Patient denies shortness of breath or pleuritic chest pain. Denies chest pain/pressure, palpitations. No fever, chills, nausea, vomiting, diarrhea, abdominal pain. No history of smoking. Here he was afebrile but slightly hypertensive, at 158/96 satting at 98% on RA. Labs were grossly unremarkable. Venous duplex ultrasound of left lower leg phone extensive occlusive DVT extending from proximal femoral vein to the popliteal vein and calf veins. He was treated with heparin drip and vascular surgery consulted, who felt patient might be a candidate for clot retrieval. Review of Systems Review of Systems: Left calf swelling and tenderness Left Achilles tendon tenderness Denies shortness of breath Note pleuritic chest pain Denies chest pain/pressure, palpitations No fever, chills, nausea, vomiting, diarrhea, abdominal pain Yes all other systems are reviewed and are negative [facility] Medical History: 1.Hemochromatosis, 2. HTN, 3. BPH, and 4. Sseasonal allergies 5. Nephrolithiasis, uric acid FAMILY HISTORY: Of note has sister mother and grandmother have had prior DVTs. In addition father had a pulmonary embolism. Social History: Advance Directives: No Advance Directives Information Provided: Yes Review of Systems - Constitutional Reports system reviewed and no additional complaints, except as documented - Eyes Reports system reviewed and no additional complaints, except as documented - ENT Reports system reviewed and no additional complaints, except as documented - Cardiovascular Reports system reviewed and no additional complaints, except as documented - Respiratory Reports no additional respiratory complaints - Gastrointestinal Reports system reviewed and no additional complaints, except as documented - Genitourinary Genitourinary: Reports no additional male genitourinary complaints - Musculoskeletal Reports system reviewed and no additional complaints, except as documented - Integumentary/Breasts Skin/Breast: Reports no additional skin complaints - Neurologic Reports system reviewed and no additional complaints, except as documented, Denies abnormal gait - Psychiatric Reports system reviewed and no additional complaints, except as documented - Endocrine Reports no additional endocrine complaints - Hematologic/Lymphatic Reports system reviewed and no additional complaints, except as documented - Allergic/Immunologic Reports system reviewed and no additional complaints, except as documented Oncology Screenings - ECOG Performance Status ECOG Performance Status: 1 [facility] Medical History: Medical History (Last Reviewed 09/13/22 @ 02:53 by Diane Samson) Nephrolithiasis, uric acid Functional capacity: uses cane/walker Patient : No Social History: Social History (Last Reviewed 09/12/22 @ 20:16 by OFELIA Jefferson) Living Situation History: Household Members: Spouse Housing: House Tobacco History: Patient Tobacco Use Status: Never used Tobacco Occupation Assessmet: service: No Home Medications and Allergies Current Medications: Current Medications Acetaminophen (Acetaminophen 325 Mg Tablet) 650 mg PO Q6H PRN PRN Reason: Pain, Mild (Pain Scale 1-3) Amlodipine Besylate (Amlodipine Besylate 2.5 Mg Tablet) 2.5 mg PO DAILY BREE; Protocol Last Admin: 09/13/22 14:01 Dose: Not Given Docusate Sodium (Docusate Sodium 100 Mg Capsule) 100 mg PO DAILY PRN PRN Reason: Constipation Heparin Sodium (Porcine) (Heparin Sodium,Porcine 5,000 Unit/Ml Vial) 3,200 unit 40 unit/kg (3200 unit) IVPUSH PROTOCOL BOLUS PRN; Protocol PRN Reason: 40 unit/kg - Heparin Protocol Last Admin: 09/13/22 11:01 Dose: 3,200 unit Heparin Sodium (Porcine) (Heparin Sodium,Porcine 5,000 Unit/Ml Vial) 6,400 unit 80 unit/kg (6400 unit) IVPUSH PROTOCOL BOLUS PRN; Protocol PRN Reason: 80 unit/kg - Heparin Protocol Heparin Sodium/Sodium Chloride (Heparin Sodium,Porcine/1/2ns) 25,000 unit in 250 mls @ 0 mls/hr IVCONT .Q0M [facility]; Protocol Last Titration: 09/13/22 10:52 Dose: 12 units/kg/hr, 9.56 mls/hr Sodium Chloride (Ns) 1,000 mls @ 100 mls/hr IVCONT .Q10H [facility] Last Admin: 09/13/22 09:25 Dose: 100 mls/hr Loratadine (Loratadine 10 Mg Tablet) 10 mg PO DAILY PRN PRN Reason: Allergy Symptoms Morphine Sulfate (Morphine Sulfate 4 Mg/Ml Cartridge) 4 mg IVPUSH Q2H PRN; Protocol PRN Reason: Pain, Severe (Pain Scale 7-10) Ondansetron HCl (Ondansetron Hcl 4 Mg/2 Ml Vial) 4 mg IVPUSH Q8H PRN PRN Reason: Nausea and Vomiting Oxycodone HCl (Oxycodone Hcl Immed Release 5 Mg Tablet) 5 mg PO Q4H PRN PRN Reason: Pain, Moderate(Pain Scale 4-6) Pharmacy Consult (Consult Rx Perform Med Rec) 1 each MISCELLANE ONCE PRN PRN Reason: Consult order Sodium Chloride (0.9 % Sodium Chloride Flush 3 Ml Syringe) 3 ml IVFLUSH QSHIFT [facility] Last Admin: 09/13/22 09:25 Dose: 3 ml Home Medications Medication Instructions Recorded Confirmed Type amlodipine 2.5 mg tablet 2.5 mg PO DAILY 10/27/20 09/13/22 History cetirizine 10 mg capsule (Zyrtec) 10 mg PO DAILY PRN Allergy Symptoms 10/27/20 09/13/22 History Allergies Allergy/AdvReac Type Severity Reaction Status Date / Time No Known Allergies Allergy Unverified 11/01/19 19:04 [No Known Allergies*] Physical Exam Vital signs: Vital Signs Temp 98.6 F 09/13/22 15:51 Pulse 78 09/13/22 15:51 Resp 18 09/13/22 15:51 BP 149/92 H 09/13/22 15:51 Pulse Ox 94 09/13/22 15:51 O2 Del Method Room Air 09/13/22 15:51 Intake & Output 09/12/22 09/13/22 09/13/22 18:59 06:59 18:59 Intake Total 99.324 / 99.324 50.477 / 50.477 Output Total 900 / 900 Balance -800.676 / -800.676 50.477 / 50.477 Urine Output (Average ml/kg/hr) 0.94 0.94 Intake: Intake, IV Amount 99.324 / 99.324 50.477 / 50.477 Heparin Sodium,Porcine/1/2NS 25 99.324 / 99.324 50.477 / 50.477 ,000 unit In 250 ml @ Per Protocol IVCONT .Q0M [facility] Rx#: [id number] Output: Output, Urine Amount 900 / 900 Other: IV Intake, Intraoperative 100 Amount Urine Urinal Urine Color Yellow Last Bowel Movement 09/12/22 Weight 79.7 kg 79.7 kg Weight in Grams [id number] [phone] Weight 79.7 kg - Constitutional Present: mild distress - Routine HEENT Exam Head: Present: normocephalic Eye: Present: normal appearance ENT: Present: mucous membranes moist - Routine Neck Exam Present: supple - Routine Respiratory Exam Present: CTAB - Routine Cardiovascular Exam Cardiovascular: Present: S1, S2 - Routine Abdominal Exam Present: normal bowel sounds, nontender - Routine Extremities Exam Present: tenderness, nontender - Routine Skin Exam Present: intact - Routine Neurological Exam Present: alert, oriented X3 - Detailed Neurological Exam: Coma Scale Eye Opening: Spontaneous (4) Verbal Response: Oriented (5) Motor Response: Obeys commands (6) Lyric Coma Scale Total: 15 - Routine Psychiatric Exam Present: normal affect Hem/Onc Consult Result - Labs CBC & Chem 7: 09/14/22 06:28 09/14/22 06:28 Labs: Short CBC 09/12/22 09/13/22 09/13/22 Range/Units 18:46 05:42 06:37 WBC 9.0 7.5 8.0 (4.8-10.8) X10*3/uL Hgb 14.9 14.8 15.1 (14.0-18.0) g/dl Hct 42.4 42.3 43.4 (42.0-52.0) % Plt Count 214 196 215 (160-400) X10*3/uL BMP 09/13/22 05:42 Sodium 143 Potassium 3.4 Chloride 106 Carbon Dioxide 23 BUN 11 Creatinine 0.75 Calcium 10.0 Assessment and Plan Patient Active problem list reviewed?: Yes (1) DVT (deep venous thrombosis) Status: Acute Assessment and plan: 52-year-old gentleman who presented to the hospital with 1 week history of left lower extremity pain and swelling. He related this back to an event when he was in [place] over August 17. At that time he had done extensive walking and bike riding. He reported left Achilles discomfort. He had continued to exercise, walk and in particular bike riding since that time. In addition he had a car ride back and forth during that. He felt okay. On the he had driven about 2-3 hours down to [place]. He was on his way back, that is when he noticed increased discomfort of the left lower extremity and swelling. He finally decided to come in this past Tuesday. At that time it was discovered that he had a DVT which was quite extensive from the calf on up in to the proximal femoral region. Of note has sister mother and grandmother have had DVTs. in addition father had a H/O pulmonary embolism. Ultrasound of the left lower extremity from 09/12 revealed: Extensive occlusive deep venous thrombosis is noted extending from the proximal femoral vein, to the popliteal vein and calf veins. He was started on IV heparin. He was evaluated by vascular surgery and thrombectomy was recommended. He underwent that today. Currently recuperating. PLAN: In view of the fact that he is young and had unprovoked DVT., as well as a family history the there off, he would be a candidate for hypercoagulable workup. However will wait in that him recover from this before proceeding with it. Will follow him on an outpatient basis, as well. Thank you for the consult, I will follow, CC: Vicky Spear Addendum: He was sent home on [facility]. - Time Spent With Patient Time Spent with Patient (in minutes): 30
[2022-09-13] MEDS: Heparin Sodium,Porcine/1/2NS 25,000 UNIT/250 ML IV.SOLN 6.38 UNIT IVCONT (20:16)
[2022-09-13 22:11] LABS: PTT Heparin Drip 127.8 SEC (53-77.9)
[2022-09-14] VITALS: BP 154/87; PULSE 75; RESP 16; TEMP 37.1; O2SAT 94
[2022-09-14 02:20] LABS: PTT Heparin Drip 35.2 SEC (53-77.9)
[2022-09-14] MEDS: Heparin Sodium,Porcine 5,000 UNIT/ML VIAL 6400 UNIT IVPUSH (02:26)
[2022-09-14 03:41] VITALS: BP 138/84; PULSE 75; RESP 16; TEMP 37.2; O2SAT 95
[2022-09-14] MEDS: 0.9 % Sodium Chloride 1,000 ML 100 ML IVCONT (05:58)
[2022-09-14 07:08] LABS: Hematocrit 39.6 % (42.0-52.0); Hemoglobin 13.8 g/dl (14.0-18.0); Mean Corpuscular HGB Conc 34.8 g/dl (31.0-36.0); Mean Corpuscular Hemoglobin 32.2 pg (27.0-33.0); Mean Corpuscular Volume 92.3 fL (80.0-98.0); Mean Platelet Volume 10.6 fL (9.4-12.4); Platelet Count 181 X10*3/uL (160-400); Red Blood Count 4.29 X10*6/uL (4.60-5.80); Red Cell Distribution Width 11.8 % (11.0-16.0); White Blood Count 8.7 X10*3/uL (4.8-10.8)
[2022-09-14 07:23] LABS: Anion Gap 16 (12-20); Blood Urea Nitrogen 11 mg/dL (9-16); Calcium 9.3 mg/dL (8.4-10.2); Carbon Dioxide 20 mmol/L (22-29); Chloride 109 mmol/L (96-108); Creatinine Clr Calc Pharmacy 154.6; Estimated Glomerular Filt Rate > 60; Glucose Random 111 mg/dL (60-115); Potassium 3.6 mmol/L (3.3-5.1); Sodium 141 mmol/L (135-145)
[2022-09-14 07:32] LABS: PTT Heparin Drip 86.1 SEC (53-77.9)
[2022-09-14 07:57] VITALS: BP 159/87; PULSE 65; RESP 18; TEMP 37.5; O2SAT 95
--- NOTE | 2022-09-14 08:20 | HO.VASCPN ---
Subjective Subjective Date of Service: 09/14/22 Patient reports: no new complaints and feels better Interval history: Patient seen examined. No significant events overnight. Reports his leg does feel little bit better in terms of swelling. He does have some mild popliteal fossa discomfort. Overall appears to be doing extremely well postprocedure. Physical Exam Vital Signs: Vital Signs: Last Vital Signs Temp 99.5 F 09/14/22 07:57 Pulse 65 09/14/22 07:57 Resp 18 09/14/22 07:57 BP 159/87 H 09/14/22 07:57 Pulse Ox 95 09/14/22 07:57 O2 Del Method Room Air 09/14/22 07:57 BMI result Body Mass Index 22.0 Const: General: cooperative, healthy appearing and no acute distress Orientation/consciousness: oriented to person, oriented to place and oriented to time HEENT: Head: Yes normal to inspection Neck: Carotids: no bruits Chest: Chest palpation & inspection: normal inspection of the chest Resp: Effort & Inspection: normal respiratory effort and able to speak in complete sentences Auscultation: clear to auscultation bilaterally Cardio: Rate: regular rate Heart sounds: S1 normal heart sound present and S2 normal heart sound present GI: Inspection: Yes normal to inspection Skin: General skin exam: no rashes or lesions noted Wounds: no wounds Neuro: General: oriented to person, oriented to place, oriented to time and CN's II-XI intact bilaterally Extrem: General: Yes normal to inspection, Yes full ROM and Yes no clubbing, cyanosis or edema Psych: Appearance: grossly normal and well kempt Speech and movement: Normal speech and movement present Affect: normal affect Progress Note: A&P Assessment and plan (1) DVT (deep venous thrombosis): Status: Acute Assessment and Plan: Stable status post mechanical venous thrombectomy. Overall doing well. Patient is stable from my perspective for discharge. Would recommend Hematology Oncology follow-up in terms of duration of anticoagulation due to strong family history. In addition can transition to oral anticoagulants. Can gradually resume normal activity. No vigorous activity for 2 weeks. Follow up with me in approximately 2-3 weeks time for postprocedure follow-up. Thank you for allowing us to assist in his care. Time Spent With Patient Time: Total time managing care of this patient today ____ minutes. Procedures Date of Service Date of Service: 09/14/22 Quality Stroke Does the patient have a stroke diagnosis?: No VTE Prior VTE?: No VTE Risk Level:: Medical - moderate - high VTE Device Contraindication: Treatment Not Indicated VTE Drug Contraindication: N/A - Med Ordered
[2022-09-14] MEDS: amLODIPine Besylate 2.5 MG TABLET PO (08:28)
[2022-09-14] MEDS: Apixaban 5 MG TABLET 10 MG PO (08:28)
[2022-09-14] MEDS: 0.9 % Sodium Chloride Flush 3 ML SYRINGE IVFLUSH (08:29)
--- NOTE | 2022-09-14 11:07 | PM.DS ---
DS: Providers Provider Date of Service: 09/14/22 Date of admission: 09/12/22 20:01 Primary care physician: Vicky Spear MD Consults: 09/12/22 20:11 Consult to Vascular Surgery Routine Consulting Provider: [facility] Reason for consultation: Extensive left DVT Has provider been notified: Yes 09/13/22 12:24 Consult to Hematology / Oncology Routine Consulting Provider: Bill Powell Reason for consultation: extensive DVT w +ve family hx for VTEs. for your kind eval and rec. DS: Diagnosis Discharge Diagnosis (1) DVT (deep venous thrombosis): Status: Acute DS: Summary Hospital Course Hospital Course: Admission note HPI Pt is a 52-year-old male with a PMH significant for?hemochromatosis, HTN, BPH, and seasonal allergies who presents to the ED with?worsening left calf pain for the past week.? Patient began having left lower extremity pain on August 17 when he noticed tenderness to his lower left calf. No noticeable swelling. Patient is an avid cyclist who cycles between 8,000-9,000 miles per year and walks 50-100 miles per month.? Patient thought that he over did it and self diagnosed with Achilles tendinitis.? Patient continue to cycle and be active with only minor limitations.? Ten days later on 08/27 patient saw a nurse practitioner at his primary care provider's office who also diagnosed him with Achilles tendinitis and referred him to physical therapy.? His first PT appointment was on 09/03/2022.? Patient also reports on Tuesday he drove 3 hours to [place] and then back 3 hours the next day.? After that drive he experienced noticeable swelling and increased pain in his left calf.? Of note patient has extensive family history of clotting disorders:? His father had a PE, and his mother, sister, maternal grandmother, and maternal great and all had DVTs.? Apparently his sister and mother have had workup for clotting disorders but with no formal diagnoses.? He otherwise has no acute medical complaints at this time.? Patient denies shortness of breath or pleuritic chest pain.? Denies chest pain/pressure, palpitations.? No fever, chills, nausea, vomiting, diarrhea, abdominal pain.? No history of smoking. In the ED pt was afebrile but slightly hypertensive, at 158/96 satting at 98% on RA. Labs were grossly unremarkable. Venous duplex ultrasound of left lower leg phone extensive occlusive DVT extending from proximal femoral vein to the popliteal vein and calf veins. Pt was treated with heparin drip and vascular surgery consulted, who thought patient might be a candidate for clot retrieval. Pt will be admitted to the hospital for treatment of left DVT with heparin drip and likely surgical procedure. Hospital course The patient was found to have Extensive DVT of left lower extremity as US found extensive occlusive DVT extending from proximal femoral vein to popliteal vein and calf veins with Family Hx of VTEs and no reported diagnosis. Started on heparin drip and evaluated by Vascular surgery who did angiography and Thrombectomy with good result as the erythema, swelling and pain improved significantly. Started on Eliquis loading doses with a plan to follow up with dr Powell as outpatient. Continue Eliquis as prescribed; 1 week of 2 tablets two times a day then 1 tablet two times a day. To follow with dr Vega in 2 weeks To follow with dr Powell as outpatient for further evaluation of underlying cause of DVT Time Spent with Patient Time attestation: Total time managing care of this patient today ____ minutes. Discharge coordination time: Greater than 30 minutes Quality: Safe Use of Opioids Does Pt have an Active Cancer Diagnosis on the Problem List?: No Quality: Stroke Does the patient have a stroke diagnosis?: No Physical Exam Vital Signs: Vital Signs: Last Vital Signs Temp 99.5 F 09/14/22 07:57 Pulse 65 09/14/22 07:57 Resp 18 09/14/22 07:57 BP 159/87 H 09/14/22 07:57 Pulse Ox 95 09/14/22 07:57 O2 Del Method Room Air 09/14/22 07:57 BMI result Body Mass Index 22.0 Const: Other: Constitutional : Awake, interactive, not in distress Neck : Normal inspection, Supple Cardiovascular : RRR, no JVP, no lower extremity edema Respiratory : good bilateral air entry, no crackles, wheezes or rhonchi Gastrointestinal: soft, lax, Normal bowel sounds, Non tender Skin : Warm, Dry Extremities: LLE less swollen almost back to normal baseline with no erythema and tenderness Neurological : Alert & oriented x3, No focal deficit DS: Data Data Completed and Pending Labs on day of discharge: Laboratory Results - last 24 hr 09/13/22 09/13/22 09/14/22 16:58 19:36 01:48 WBC RBC Hgb Hct MCV MCH MCHC RDW Plt Count MPV Absolute Nucleated RBC Nucleated RBC % (auto) aPTT Heparin Protocol 127.8 H* D 43.0 L D 35.2 L Sodium Potassium Chloride Carbon Dioxide Anion Gap BUN Creatinine Estim Creat Clear Calc Estimated GFR Random Glucose Calcium 09/14/22 09/14/22 09/14/22 06:28 06:28 06:28 WBC 8.7 RBC 4.29 L Hgb 13.8 L Hct 39.6 L MCV 92.3 MCH 32.2 MCHC 34.8 RDW 11.8 Plt Count 181 MPV 10.6 Absolute Nucleated RBC 0.000 Nucleated RBC % (auto) 0.0 aPTT Heparin Protocol 86.1 H D Sodium 141 Potassium 3.6 Chloride 109 H Carbon Dioxide 20 L Anion Gap 16 BUN 11 Creatinine 0.63 Estim Creat Clear Calc 154.6 Estimated GFR > 60 Random Glucose 111 Calcium 9.3 D Imaging Venous US: Radiologist's impression: ITS Impressions Venous Duplex 09/12/22 16:45 IMPRESSION: Extensive occlusive deep venous thrombosis is noted extending from the proximal femoral vein, to the popliteal vein and calf veins. These critical results were discussed with Isamar Crocker NP by telephone at 09/12/2022 5:24 PM and it was ascertained that the content and urgency of the report was understood at the time of direct communication. Chest X-Ray 09/12/22 22:39 IMPRESSION: No acute cardiopulmonary findings. Discharge Plan Discharge Anticipated Discharge Date/Time: 09/14/22 11:04 Patient Disposition: Home, Self-Care Discharge Diagnosis: Acute left lower extremity DVT Referrals: Vicky Spear MD [Primary Care Provider] - 1 Week Discharge Medications: New Eliquis DVT-PE Treat 30D Start 5 mg (74 tabs) tablets,dose pack 5 mg PO BID Qty: 74 0RF Rx Instructions: 1 week of 2 tabs twice daily then 1 tab twice daily. Continued Zyrtec 10 mg capsule 10 mg PO DAILY PRN (Reason: Allergy Symptoms) amlodipine 2.5 mg tablet 2.5 mg PO DAILY Discharge Orders: Discharge Order (Routine); Ordered 09/14/22 Ordered By: Leeanne Hernandez Diet: Advance to usual diet Activity on Discharge: As tolerated Stand Alone Forms: Patient Portal Discharge page Activity Restrictions/Additional Instructions: Please resume normal activity as tolerated. No vigorous exercise for [address] Please see Dr. Vega for outpatient follow-up in approximately 2-3 weeks time. Office number is [phone] Care Plan Goals: Read below Health Concerns: Read below Plan of Treatment: Read below Assessment: Continue Eliquis as prescribed; 1 week of 2 tablets two times a day then 1 tablet two times a day. To follow with dr Vega in 2 weeks To follow with dr Powell as outpatient for further evaluation of underlying cause of DVT Patient Instructions: Deep Vein Thrombosis (ED)
--- NOTE | 2022-09-14 11:17 | MHC.CM.PN ---
Patient has been medically cleared for dc to home today, self care.
[2022-09-14 11:45] VITALS: BP 144/80; PULSE 70; RESP 18; TEMP 37.2; O2SAT 96
== END 2022-09-14 12:51 | disposition home or self-care (01) | DRG 272 ==
LOC: HO.ED 18:32 → HO.EDOVER 20:28 → HO.IMC 23:32
PROVIDERS: Internal Medicine; Nurse Practitioner Family; Physician Assistant Medical; Student in an Organized Health Care Education/Training Program; Surgery Vascular Surgery; Admitting Provider Student in an Organized Health Care Education/Training Program; Emergency Provider Internal Medicine; PCP Family Medicine; Visit Provider Student in an Organized Health Care Education/Training Program
PROC: 04CN3ZZ Extirpation of Matter from Left Popliteal Artery, Percutaneous Approach (ICD-10-PCS; principal; 2022-09-13 13:00)
DX: I82.412 Acute embolism and thrombosis of left femoral vein (principal); I82.432 Acute embolism and thrombosis of left popliteal vein; I82.4Z2 Acute embolism and thrombosis of unspecified deep veins of left distal lower extremity; Z79.899 Other long term (current) drug therapy
CPT/HCPCS: 36415; 36595; 71045; 76937; 80048; 80076; 85025; 85027; 85610; 85730; 93005; 93971; 99152; 99153; 99284; C1757; C1769; C1887; J1643

== ENCOUNTER 2022-09-12 20:01 | Outpatient (BNV) | payer OTHER, SELFPAY | END 2022-09-12 22:47 | PROVIDERS: Admitting Provider Student in an Organized Health Care Education/Training Program; Emergency Provider Internal Medicine; PCP Family Medicine; Visit Provider Internal Medicine | DX: I51.9 Heart disease, unspecified (principal) | CPT/HCPCS: 93010 ==

== ENCOUNTER → 2022-09-12 20:01 | Outpatient (BNV) | payer OTHER, SELFPAY | PROVIDERS: Admitting Provider Student in an Organized Health Care Education/Training Program; Emergency Provider Internal Medicine; PCP Family Medicine; Visit Provider Internal Medicine Medical Oncology | DX: I82.412 Acute embolism and thrombosis of left femoral vein (principal); Z84.89 Family history of other specified conditions | CPT/HCPCS: 99222 ==

== ENCOUNTER → 2022-09-12 20:01 | Outpatient (BNV) | payer OTHER, SELFPAY | PROVIDERS: Admitting Provider Student in an Organized Health Care Education/Training Program; Emergency Provider Internal Medicine; PCP Family Medicine; Visit Provider Surgery Vascular Surgery | DX: I82.432 Acute embolism and thrombosis of left popliteal vein (principal) | CPT/HCPCS: 36012; 37187; 75820; 76937; 99152; 99222; 99232 ==

== ENCOUNTER → 2022-09-12 20:01 | Outpatient (BNV) | payer OTHER, SELFPAY | PROVIDERS: Admitting Provider Student in an Organized Health Care Education/Training Program; Emergency Provider Internal Medicine; PCP Family Medicine; Visit Provider Student in an Organized Health Care Education/Training Program | DX: I82.409 Acute embolism and thrombosis of unspecified deep veins of unspecified lower extremity (principal) | CPT/HCPCS: 99223; 99233; 99239 ==

== ENCOUNTER 2022-09-30 09:17 | Outpatient (AMB) | payer OTHER, SELFPAY ==
--- NOTE | 2022-09-30 09:15 | MHC.OFFVIS ---
Intake Vital Signs 09/30/22 09:19 Height 6 ft 3 in Weight 175 lb BMI 21.9 Intake Visit Reasons: Post Op 09/13 Thrombectomy Intake Note: post op 09/13/22 thrombectomy Left LE, pt states he is feeling better and recently stopped having pain. States he is walking w/ his dog about 1.5 miles. He is taking his blood thinner Accompanied by: Self / Same As Patient Allergies No Known Allergies [No Known Allergies*] Allergy (Unverified 09/30/22 09:23) HPI Post Op 09/13 Thrombectomy HPI Details Pleasant 52-year-old gentleman who originally presented to the hospital with acute onset left lower extremity swelling. He was discovered to have an extensive left lower extremity DVT. He subsequently underwent mechanical thrombectomy. He was anticoagulated and was subsequently discharged from the hospital. Of note he does have a significant family history DVT and PE. He has been seen by Hematology-Oncology. He now presents for routine postprocedure follow-up. Upon discussion with him he did have some discomfort the 1st week or 2 but it has progressively improved. He is able to walk a mi or 2 with his dog daily. He has been compliant with his Eliquis. PENDING SALE TO [facility] Medical History (Updated 09/30/22 @ 10:26 by Juventino Vega MD) DVT (deep venous thrombosis) Hemochromatosis Nephrolithiasis, uric acid Family History (Updated 09/30/22 @ 09:26 by THEODORA Mueller) Father Pulmonary embolism Mother DVT (deep venous thrombosis) Sister DVT (deep venous thrombosis) Maternal Aunt DVT (deep venous thrombosis) Social History Household Members: Spouse Housing: House Patient Tobacco Use Status: Never used Tobacco service: No Review of Systems Const All systems reviewed & are unremarkable except as noted in HPI and below Reports no additional complaints ENT Reports Normal hearing present Card Denies chest pain, Denies chest pain at rest, Denies chest pain with activity and Denies pedal edema Resp Denies cough GI Denies abdominal pain Musc Denies abnormal gait, Denies muscle cramps and Denies radiating pain into limb Skin/Breast Denies skin ulcer and Denies wounds Neuro Reports Normal hearing present and Denies abnormal gait Psych Reports no additional complaints Physical Exam Vital Signs: BMI result Body Mass Index 21.9 Const General: cooperative, healthy appearing and comfortable Orientation/consciousness: oriented to person, oriented to place and oriented to time HEENT Head: Yes normal to inspection Neck Neck: Yes normal visual inspection Carotids: no bruits Chest Chest palpation & inspection: normal inspection of the chest Resp Effort & Inspection: normal respiratory effort and able to speak in complete sentences Cardio Peripheral pulses: Peripheral pulses 2+ throughout GI Inspection: Yes normal to inspection Skin Wounds: no wounds Hair: normal Neuro General: oriented to person, oriented to place and oriented to time Cranial nerves: Yes CN's II-XII intact bilaterally and Yes Normal hearing present Cognition (Neuro): normal cognition Motor exam (neuro): 5/5 motor strength present throughout Extrem Other: venous exam: +1 edema General: No clubbing, No cyanosis and Yes edema Psych Appearance: grossly normal Mental Status: mental status grossly normal Speech and movement: Normal speech and movement present Results Reviewed Results Reviewed: Imaging from 09/13/2022 was reviewed Assessment & Plan Assessment & Plan (1) DVT (deep venous thrombosis): Code(s): I82.409 - Acute embolism and thrombosis of unspecified deep veins of unspecified lower extremity Plan: In short patient is resolving in doing well status post left lower extremity mechanical venous thrombectomy. He is currently on Eliquis for anticoagulation. He does have a follow-up scheduled for Hematology Oncology later this afternoon to better help determine long-term duration of anticoagulants. Does have an extremely for strong family history of this DVT. We did discuss routine conservative measures including compression elevation and exercise. In addition I did provide him an information sheet about compression stockings and where to purchase appropriate compression for him. He will follow up with us on an as-needed basis. Thank you for allowing us to assist in his care. If there are any questions or concerns please do not hesitate to contact us. Coding Level of Care Code Est Pt Level 4 (00242) Diagnoses DVT (deep venous thrombosis) I82.409
[2022-09-30 09:19] VITALS: BMI 21.9
== END 2022-09-30 09:58 | disposition home or self-care (01) ==
PROVIDERS: PCP Family Medicine; Visit Provider Surgery Vascular Surgery
DX: I82.409 Acute embolism and thrombosis of unspecified deep veins of unspecified lower extremity (principal)
CPT/HCPCS: 99213

== ENCOUNTER → 2022-09-30 09:17 | Outpatient (BNVA) | payer OTHER, SELFPAY | PROVIDERS: PCP Family Medicine; Visit Provider Surgery Vascular Surgery ==

== ENCOUNTER → 2022-09-30 14:38 | Outpatient (BNV) | payer OTHER, SELFPAY | PROVIDERS: PCP Family Medicine; Visit Provider Internal Medicine Medical Oncology | DX: I82.402 Acute embolism and thrombosis of unspecified deep veins of left lower extremity (principal) | CPT/HCPCS: 99213; 99214 ==

== ENCOUNTER 2022-11-01 15:14 | Outpatient (REF) | payer OTHER, SELFPAY ==
--- NOTE | ~2022-11-01 | US_ITS ---
EXAMINATION: US VENOUS ULTRASOUND WITH DOPPLER LOWER EXTREMITY, LEFT CLINICAL INFORMATION: Follow-up left leg DVT. COMPARISON: None available. TECHNIQUE: Ultrasound of the deep veins is performed from the hip to the calf with compression sonography and color and pulse Doppler assessment. Spectral analysis with color-flow imaging is performed. FINDINGS: The left common femoral, greater saphenous and profunda veins are patent with normal compression. 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 There is positive thrombus is normal compression and the left proximal, mid and distal femoral vein including the popliteal vein. The other duplicated vein is patent in its proximal to distal segment. The peroneal and posterior tibial veins are patent. There is no significant popliteal fossa cyst. 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 The other duplicated superficial femoral vein is patent. The left common femoral, greater saphenous and profunda veins and the calf veins are patent.
== END 2022-11-01 15:15 | disposition home or self-care (01) ==
LOC: HO.US 15:14
PROVIDERS: PCP Family Medicine; Visit Provider Internal Medicine Medical Oncology
DX: I82.402 Acute embolism and thrombosis of unspecified deep veins of left lower extremity (principal)
CPT/HCPCS: 93971

== ENCOUNTER 2023-02-04 15:15 | Outpatient (AMB) | payer OTHER, SELFPAY ==
--- NOTE | 2023-02-04 15:27 | MHC.OFFVIS ---
Intake Intake Visit Reasons: Elevated PSA- follow up (saw Dr. Talavera 2019) Intake Note: Patient is present for follow up. Last saw Dr Vieira 2019 Allergies No Known Allergies [No Known Allergies*] Allergy (Unverified 11/15/22 13:26) HPI HPI Comments History of Present Illness Details Scott is a pleasant male. He is a patient of Dr. Spear. He is seen for the following urologic conditions - bladder outlet obstruction - nephrolithiasis Bladder outlet obstruction Ongoing Slight weakness of stream Feeling of complete emptying No current medications No recent PSA Nephrolithiasis Prior intervention No recent imaging [facility] Medical History Hemochromatosis DVT (deep venous thrombosis) Nephrolithiasis, uric acid Family History Father Pulmonary embolism Mother DVT (deep venous thrombosis) Sister DVT (deep venous thrombosis) Maternal Aunt DVT (deep venous thrombosis) Social History Household Members: Spouse Housing: House Patient Tobacco Use Status: Never used Tobacco service: No Current occupational status: employed Review of Systems Const All systems reviewed & are unremarkable except as noted in HPI and below Reports no additional complaints Resp Reports no additional complaints GI Reports no additional complaints Reports as per HPI Musc Reports no additional complaints Physical Exam Telemedicine evaluation Appropriate responses Regular breathing rate and rhythm HEENT Head: Yes normal to inspection Ears: hearing grossly normal bilaterally Eyes General: appearance normal, both eyes and all related structures Neck Neck: Yes normal visual inspection Chest Chest palpation & inspection: normal inspection of the chest Resp Effort & Inspection: normal respiratory effort and able to speak in complete sentences Assessment & Plan Assessment & Plan (1) Nephrolithiasis: Code(s): N20.0 - Calculus of kidney (2) Bladder outlet obstruction: Code(s): N32.0 - Bladder-neck obstruction Plan PSA now, renal ultrasound in 1 month Orders: Orders Prostate Specific Antigen 02/04/23 N32.0 - Bladder-neck obstruction US renal BI 1 Month N20.0 - Calculus of kidney Patient Instructions: Imaging studies, laboratory and physical exam results were discussed and reviewed in detail. No major barriers to patient understanding were identified. An opportunity to ask questions regarding the treatment plan was provided. All questions were answered. The patient expressed understanding and agreement with the above treatment plan. The patient is aware they should contact our office by phone for worsening of their current condition or the appearance of new urologic symptoms. Compliance is encouraged with any medications and followup testing that is ordered. It is a privilege to participate in the urologic care of your patient. If you have any questions or concerns regarding treatment for the above conditions, or other urologic issues, please do not hesitate to contact me. The office telephone contact is [phone]. This note is constructed using voice recognition software. While every effort has been made to ensure accuracy rotary slicing machine operator errors may have been included. Yours sincerely, Dr Nirav Vieira MD, [facility] - Urology Providers of Expert, Compassionate Care for the Genitourinary System Telehealth Telehealth Location of provider rendering services: practice address Location of patient: address on file Patient Identification confirmed using: Name, : Yes Telehealth method: voice only Patient verbally consented to treatment: Yes Patient verbally consented to billing insurance company: Yes Patient informed of any privacy concerns related to visit: Yes Coding Level of Care Code Est Pt Level 4 (52256) Diagnoses Nephrolithiasis N20.0 Bladder outlet obstruction N32.0
== END 2023-02-04 16:00 | disposition home or self-care (01) ==
PROVIDERS: PCP Family Medicine; Visit Provider Urology
DX: N20.0 Calculus of kidney (principal); N32.0 Bladder-neck obstruction
CPT/HCPCS: 99203

== ENCOUNTER → 2023-02-04 15:15 | Outpatient (BNVA) | payer OTHER, SELFPAY | PROVIDERS: PCP Family Medicine; Visit Provider Urology ==

== ENCOUNTER 2023-03-10 10:51 | Outpatient (REF) | payer OTHER, SELFPAY ==
--- NOTE | ~2023-03-10 | US_ITS ---
EXAMINATION: US RETROPERITONEAL LIMITED (RENAL ONLY) CLINICAL INFORMATION: Calculus of kidney. COMPARISON: Renal ultrasound 03/19/2019 and 03/27/2018. CT abdomen and pelvis without contrast 08/24/2017. TECHNIQUE: Real-time imaging of the kidneys. FINDINGS: RIGHT KIDNEY: 10.9 x 5.1 x 4.9 cm (SAG x AP x TRV). The kidney is normal in size, contour, and echogenicity. Renal cortical thickness is normal. No hydronephrosis. Midpole cyst measures 1.2 x 1.2 x 0.9 cm. Lower pole nonobstructing calculi measure 3 mm and 5 mm. LEFT KIDNEY: 10.3 x 5.9 x 5.1 cm (SAG x AP x TRV). The kidney is normal in size, contour, and echogenicity. Renal cortical thickness is normal. No renal calculi or hydronephrosis. Midpole cyst measures 0.9 x 1.1 x 0.8 cm. US/US renal BI IMPRESSION: Bilateral renal cysts. No further routine follow-up is needed. Nonobstructing right renal calculi. No hydronephrosis.
--- NOTE | ~2023-03-10 | US_ITS ---
EXAMINATION: US VENOUS ULTRASOUND WITH DOPPLER LOWER EXTREMITY, LEFT CLINICAL INFORMATION: Follow-up of deep vein thrombosis COMPARISON: 11/01/2022 TECHNIQUE: Ultrasound of the deep veins is performed from the hip to the calf with compression sonography and color and pulse Doppler assessment. Spectral analysis with color-flow imaging is performed. FINDINGS: The left common femoral vein is compressible and exhibits a normal phasic waveform; this suggests that the iliac veins are widely patent above. Within the proximal thigh, the visualized profunda femoris vein is normal. The examined greater saphenous vein and saphenofemoral junction are normal. Superficial femoral vein is patent in the proximal thigh. 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 The femoral vein appears to be chronically occluded by thrombus in the mid to lower thigh. This is similar in appearance compared to 11/01/2022. The more superficial duplicated vein is patent. Popliteal vein remains occluded with thrombus, also similar compared to 11/01/2022. The posterior tibial and peroneal veins are normal. No evidence of Anthony's cyst. 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 * There is no appreciable improvement in the previously observed deep vein thrombosis. The femoral vein remains occluded by thrombus in the [id number] thigh. 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 * No evidence of DVT within the calf.
== END 2023-03-10 10:52 | disposition home or self-care (01) ==
LOC: HO.US 10:51
PROVIDERS: PCP Family Medicine; Visit Provider Urology
DX: N20.0 Calculus of kidney (principal); I82.402 Acute embolism and thrombosis of unspecified deep veins of left lower extremity
CPT/HCPCS: 76775; 93971

== ENCOUNTER 2023-05-25 10:28 | Outpatient (AMB) | payer OTHER, SELFPAY ==
--- NOTE | 2023-05-25 10:40 | MHC.OFFVIS ---
Intake Intake Visit Reasons: 4M PSA/US(psa 1.0)Confirmed Intake Note: Patient presents today for a follow up on: PSA/US Meds- None Allergies to Antibiotic- No Known Allergies Blood Thinner- Apixaban Vehicle Refinisher Required: No Allergies No Known Allergies [No Known Allergies*] Allergy (Verified 05/25/23 10:41) Medication List - Last Reconciled 05/25/23 by Nirav Vieira MD amlodipine 2.5 mg PO DAILY apixaban (Eliquis) 5 mg PO BID cetirizine (Zyrtec) 10 mg PO DAILY PRN compress.stocking,knee,reg,med ([employer]st Anti-Embolism Stocking) As Directed. Medium compression: 20 - 30 mm Hg HPI HPI Comments History of Present Illness Details Scott is a pleasant male. He is a patient of Dr. Spear. He is seen for the following urologic conditions - nephrolithiasis Telemedicine Evaluation 15 min Consultation [facility] [place] [facility] Family hisptory of prostate cancer No current medications PSA 04/09 1.0 Nephrolithiasis Prior intervention Imaging - 04/09 renal ultrasound bilateral 1.2 cm cyst, 3 mm and 5 mm stone right side [facility] Medical History (Reviewed 05/25/23 @ 10:42 by Kaitlin Medel [facility]) Hemochromatosis DVT (deep venous thrombosis) Nephrolithiasis, uric acid Family History (Reviewed 05/25/23 @ 10:42 by Kaitlin Medel [facility]) Father Pulmonary embolism Mother DVT (deep venous thrombosis) Sister DVT (deep venous thrombosis) Maternal Aunt DVT (deep venous thrombosis) Social History (Reviewed 05/25/23 @ 10:42 by Kaitlin Medel [facility]) Household Members: Spouse Housing: House Patient Tobacco Use Status: Never used Tobacco service: No Current occupational status: employed Review of Systems Const All systems reviewed & are unremarkable except as noted in HPI and below Reports no additional complaints Resp Reports no additional complaints GI Reports no additional complaints Reports as per HPI Musc Reports no additional complaints Physical Exam Telemedicine evaluation Appropriate responses Regular breathing rate and rhythm HEENT Head: Yes normal to inspection Ears: hearing grossly normal bilaterally Eyes General: appearance normal, both eyes and all related structures Neck Neck: Yes normal visual inspection Chest Chest palpation & inspection: normal inspection of the chest Resp Effort & Inspection: normal respiratory effort and able to speak in complete sentences Assessment & Plan Assessment & Plan (1) Nephrolithiasis: Code(s): N20.0 - Calculus of kidney (2) Family history of prostate cancer in father: Code(s): Z80.42 - Family history of malignant neoplasm of prostate Plan Twelve month follow-up renal ultrasound Orders: Orders US renal BI 12 Months N20.0 - Calculus of kidney Patient Instructions: Imaging studies, laboratory and physical exam results were discussed and reviewed in detail. No major barriers to patient understanding were identified. An opportunity to ask questions regarding the treatment plan was provided. All questions were answered. The patient expressed understanding and agreement with the above treatment plan. The patient is aware they should contact our office by phone for worsening of their current condition or the appearance of new urologic symptoms. Compliance is encouraged with any medications and followup testing that is ordered. It is a privilege to participate in the urologic care of your patient. If you have any questions or concerns regarding treatment for the above conditions, or other urologic issues, please do not hesitate to contact me. The office telephone contact is [phone]. This note is constructed using voice recognition software. While every effort has been made to ensure accuracy high school social science teacher errors may have been included. Yours sincerely, Dr Nirav Vieira MD, [facility] - Urology Providers of Expert, Compassionate Care for the Genitourinary System Telehealth Telehealth Location of provider rendering services: practice address Location of patient: address on file Patient Identification confirmed using: Name, : Yes Telehealth method: video Patient verbally consented to treatment: Yes Patient verbally consented to billing insurance company: Yes Patient informed of any privacy concerns related to visit: Yes Minutes spent on Phone/Video with Pt.: 15 Coding Level of Care Code Tele Est Pt Level 3 (96958) Diagnoses Nephrolithiasis N20.0 Family history of prostate cancer in father Z80.42
== END 2023-05-25 11:04 | disposition home or self-care (01) ==
LOC: HO.HUSH 10:28
PROVIDERS: PCP Family Medicine; Visit Provider Urology
DX: N20.0 Calculus of kidney (principal); Z80.42 Family history of malignant neoplasm of prostate
CPT/HCPCS: 99213

== ENCOUNTER → 2023-05-25 10:28 | Outpatient (BNVA) | payer OTHER, SELFPAY | PROVIDERS: PCP Family Medicine; Visit Provider Urology ==

== ENCOUNTER 2023-07-23 16:14 | Emergency (ER) | payer OTHER, SELFPAY ==
--- NOTE | ~2023-07-23 | CT_ITS ---
EXAMINATION: CT HEAD WITHOUT CONTRAST CLINICAL INFORMATION: Fall head strike on anticoagulation COMPARISON: None TECHNIQUE: Contiguous axial imaging was performed from the skull base to vertex without intravenous administration of contrast. This CT examination was performed using dose optimization techniques as appropriate, variously including the following: *Automated exposure control *Adjustment of mA and/or kV according to patient size (this includes techniques or standardized protocols for targeted exams where dose is matched to indication/reason for exam; i.e. extremities or head) *Use of iterative reconstruction technique DLP: 678.7 mGy-cm FINDINGS: There is no evidence of acute intracranial hemorrhage or territorial infarction. No abnormal mass effect or midline shift is seen. Grubbs to white matter differentiation is well preserved. No extra-axial fluid collections are identified. The ventricles are normal in size. There is no abnormal attenuation within the brain parenchyma. The osseous structures and soft tissues are normal. The mastoid air cells and visualized portions of the paranasal sinuses are well aerated. CT/CT cervical spine wo IV con IMPRESSION: No acute intracranial pathology. EXAMINATION: Noncontrast CT scan of the cervical spine. INDICATION: Status post fall COMPARISON: None. TECHNIQUE: Helical, multidetector axial images were obtained from the occiput to the upper thorax. Coronal and sagittal reformats of the cervical spine were provided for interpretation. DLP: 329.13 mGy-cm FINDINGS: No acute fractures or dislocations of the cervical spine are seen. Straightening the normal cervical curvature. Anatomic alignment and positioning of the vertebral bodies and posterior elements is noted. The atlantoaxial joint and craniovertebral articulations are normal without evidence of subluxation. There is no prevertebral soft tissue swelling. Biapical pleural parenchymal scarring. Visualized portions of the thyroid are unremarkable. IMPRESSION: 1. No acute visible fracture or dislocation. 2. Straightening of normal cervical curvature.
[2023-07-23 16:15] VITALS: BP 147/88; PULSE 60; RESP 16; TEMP 36.3; O2SAT 99; BMI 21.2
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
--- NOTE | 2023-07-23 16:18 | ECG_ITS ---
Test Reason : SYNCOPE Blood Pressure : / mmHG Vent. Rate : 061 BPM Atrial Rate : 061 BPM P-R Int : 212 ms QRS Dur : 108 ms QT Int : 406 ms P-R-T Axes : 046 -03 014 degrees QTc Int : 408 ms Sinus rhythm with 1st degree A-V block Possible Left atrial enlargement Left ventricular hypertrophy ( R in aVL , Sokolow-Coulter , Bryson product ) Nonspecific ST abnormality Abnormal ECG When compared with ECG of 12-SEP-2022 22:47, Nonspecific T wave abnormality no longer evident in Anterior leads Referred By: Nannette Miller Electronically Signed By:GLENDY CORREA MD
[2023-07-23 16:48] LABS: MANUAL DIFF FLAG NO
[2023-07-23 16:50] LABS: Basophils Percent Auto 0.4 % (0-2); Eosinophils Percent Auto 0.5 % (0-4); Hematocrit 42.2 % (42.0-52.0); Hemoglobin 15.1 g/dl (14.0-18.0); Imm Gran Abs Auto 0.01 X10*3/uL (0.00-0.03); Imm Gran Pct Auto 0.1 % (0.0-0.4); Lymphocytes Absolute Auto 1.6 X10*3/uL (1.2-4.9); Lymphocytes Percent Auto 21.4 % (20-40); Mean Corpuscular HGB Conc 35.8 g/dl (31.0-36.0); Mean Corpuscular Hemoglobin 34.2 pg (27.0-33.0); Mean Corpuscular Volume 95.5 fL (80.0-98.0); Mean Platelet Volume 10.9 fL (9.4-12.4); Monocytes Absolute Auto 0.4 X10*3/uL (0.1-1.2); Monocytes Percent Auto 5.9 % (2-11); Neutrophils Absolute Auto 5.3 x10*3/uL (2.0-8.3); Neutrophils Percent Auto 71.7 % (45-73); Platelet Count 196 X10*3/uL (160-400); Red Blood Count 4.42 X10*6/uL (4.60-5.80); Red Cell Distribution Width 12.6 % (11.0-16.0); White Blood Count 7.5 X10*3/uL (4.8-10.8)
[2023-07-23 17:03] LABS: Alanine Aminotransferase 27 U/L (0-40); Albumin Level 4.4 g/dL (3.5-5.0); Alkaline Phosphatase 44 U/L (39-117); Anion Gap 14 (12-20); Aspartate Amino Transferase 24 U/L (5-37); Bilirubin Direct 0.3 mg/dL (0.0-0.5); Bilirubin Total 0.6 mg/dL (0.0-1.0); Blood Urea Nitrogen 16 mg/dL (9-16); Calcium 9.8 mg/dL (8.4-10.2); Carbon Dioxide 23 mmol/L (22-29); Chloride 108 mmol/L (96-108); Creatinine Clr Calc Pharmacy 99.1; Estimated Glomerular Filt Rate > 60; Glucose Random 165 mg/dL (60-115); Magnesium 2.2 mg/dL (1.6-2.6); Potassium 3.9 mmol/L (3.3-5.1); Sodium 141 mmol/L (135-145); Total Protein 6.8 g/dL (6.5-8.0)
[2023-07-23 17:10] LABS: Troponin-I High Sensitivity 13.7 ng/L (<3.5-35.0)
[2023-07-23 17:18] LABS: INTERNATIONAL NORM RATIO 1.1 (0.9-1.1); Prothrombin Time 13.2 SEC (11.1-13.3)
[2023-07-23 17:21] LABS: Partial Thromboplastin Time 31.1 SEC (26.0-36.8)
[2023-07-23 18:16] VITALS: BP 156/87; PULSE 64
[2023-07-23 18:18] VITALS: BP 143/91; PULSE 60
[2023-07-23 18:19] VITALS: BP 138/85; PULSE 67
[2023-07-23 18:25] VITALS: BP 156/87; PULSE 62; RESP 18; TEMP 36.6; O2SAT 98
[2023-07-23 18:40] LABS: Appearance Urine Cloudy; Color Urine Dark Yellow; Glucose Urine UA Negative (Negative); Leukocyte Esterase Urine Negative (Negative); Nitrite Urine Negative (Negative); PH 5.5 (5.0-9.0); Specific Gravity - Urine 1.025 (1.005-1.025); Urine Blood Negative (Negative); Urine Ketones Trace mg/dL (Negative); Urine Protein Negative (Neg-Trace)
--- NOTE | 2023-07-23 19:43 | PC.NURSE ---
This RN assumed pt care @ 1900. Pt d/c by provider
[2023-07-23 20:16] VITALS: BP 156/87; PULSE 62; RESP 18; TEMP 36.6; O2SAT 98
== END 2023-07-23 20:18 | disposition home or self-care (01) ==
PROVIDERS: Physician Assistant; Emergency Provider Student in an Organized Health Care Education/Training Program; PCP Family Medicine
DX: R55 Syncope and collapse (principal); S09.90XA Unspecified injury of head, initial encounter; S01.81XA Laceration without foreign body of other part of head, initial encounter; W19.XXXA Unspecified fall, initial encounter; I44.0 Atrioventricular block, first degree; Y93.89 Activity, other specified; Y92.017 Garden or yard in single-family (private) house as the place of occurrence of the external cause; Y99.9 Unspecified external cause status; Z86.718 Personal history of other venous thrombosis and embolism; Z79.01 Long term (current) use of anticoagulants
CPT/HCPCS: 12011; 36415; 70450; 72125; 80048; 80076; 81003; 83735; 84484; 85025; 85610; 85730; 93005; 99284

== ENCOUNTER → 2023-07-23 16:18 | Outpatient (BNV) | payer OTHER, SELFPAY | PROVIDERS: Emergency Provider Student in an Organized Health Care Education/Training Program; PCP Family Medicine; Visit Provider Internal Medicine Cardiovascular Disease | DX: R55 Syncope and collapse (principal) | CPT/HCPCS: 93010 ==

== ENCOUNTER 2023-08-19 15:53 | Outpatient (REF) | payer OTHER, SELFPAY ==
--- NOTE | ~2023-08-19 | US_ITS ---
EXAMINATION: US VENOUS ULTRASOUND WITH DOPPLER LOWER EXTREMITY, LEFT CLINICAL INFORMATION: Follow-up DVT COMPARISON: 03/10/2023 TECHNIQUE: Ultrasound of the deep veins is performed from the hip to the calf with compression sonography and color and pulse Doppler assessment. Spectral analysis with color-flow imaging is performed. FINDINGS: When compared to the previous examinations is no significant interval change in appearance of echogenic clot in the popliteal vein suggestive for chronic DVT there is no new clots identified. Left groin and revealed lymphadenopathy with reactive appearing lymph node with echogenic center measured 2.1 x 0.6 x 1.4 cm. Seen on the previous examination of February: Intramural vein has been resolved. US/US venous duplex LE LT IMPRESSION: Chronic DVT demonstrated in the left popliteal vein and resolution of clot in the left femoral vein.
== END 2023-08-19 15:54 | disposition home or self-care (01) ==
LOC: HO.US 15:53
PROVIDERS: PCP Family Medicine; Visit Provider Internal Medicine Medical Oncology
DX: E83.119 Hemochromatosis, unspecified (principal); I82.532 Chronic embolism and thrombosis of left popliteal vein
CPT/HCPCS: 93971

== ENCOUNTER 2023-12-04 14:36 | Emergency (ER) | payer OTHER, SELFPAY ==
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
--- NOTE | ~2023-12-04 | XR_ITS ---
EXAMINATION: XR KNEE, RIGHT CLINICAL INFORMATION: Fall COMPARISON: None available. TECHNIQUE: Four views of the right knee. FINDINGS: No acute visible fracture or dislocation. Mild narrowing of the medial femorotibial compartment. A fabella is noted in the posterior compartment. Joint spaces and alignment otherwise maintained. Small knee joint effusion. Soft tissues are unremarkable. XR/XR knee RT 4V IMPRESSION: 1. No acute visible fracture or dislocation. 2. Mild narrowing of the medial femorotibial compartment. 3. Small knee joint effusion. Electronically signed by: Shanell Hdez MD 12/04/2023 04:44 PM EDT
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
[2023-12-04 14:45] VITALS: BP 143/92; PULSE 58; RESP 18; TEMP 36.5; O2SAT 98; BMI 21.2
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
[2023-12-04 15:29] LABS: MANUAL DIFF FLAG NO
[2023-12-04 15:33] LABS: Basophils Percent Auto 0.6 % (0-2); Eosinophils Absolute Auto 0.1 X10*3/uL (0.0-0.4); Eosinophils Percent Auto 0.7 % (0-4); Hemoglobin 14.2 g/dl (14.0-18.0); Imm Gran Abs Auto 0.02 X10*3/uL (0.00-0.03); Imm Gran Pct Auto 0.3 % (0.0-0.4); Lymphocytes Absolute Auto 1.3 X10*3/uL (1.2-4.9); Lymphocytes Percent Auto 18.4 % (20-40); Mean Corpuscular HGB Conc 35.5 g/dl (31.0-36.0); Mean Corpuscular Hemoglobin 33.6 pg (27.0-33.0); Mean Corpuscular Volume 94.6 fL (80.0-98.0); Mean Platelet Volume 10.4 fL (9.4-12.4); Monocytes Absolute Auto 0.6 X10*3/uL (0.1-1.2); Monocytes Percent Auto 8.1 % (2-11); Neutrophils Absolute Auto 5.1 x10*3/uL (2.0-8.3); Neutrophils Percent Auto 71.9 % (45-73); Platelet Count 192 X10*3/uL (160-400); Red Blood Count 4.23 X10*6/uL (4.60-5.80); Red Cell Distribution Width 12.5 % (11.0-16.0); White Blood Count 7.1 X10*3/uL (4.8-10.8)
[2023-12-04 15:48] LABS: Prothrombin Time 11.9 SEC (10.9-12.4)
[2023-12-04 16:03] LABS: Alanine Aminotransferase 39 U/L (0-40); Albumin Level 4.1 g/dL (3.5-5.0); Alkaline Phosphatase 43 U/L (39-117); Anion Gap 11 (12-20); Aspartate Amino Transferase 33 U/L (5-37); Bilirubin Total 0.5 mg/dL (0.0-1.0); Blood Urea Nitrogen 14 mg/dL (9-16); Calcium 9.6 mg/dL (8.4-10.2); Carbon Dioxide 27 mmol/L (22-29); Chloride 108 mmol/L (96-108); Creatinine Clr Calc Pharmacy 116.4; Estimated Glomerular Filt Rate > 60; Glucose Random 103 mg/dL (60-115); Potassium 3.8 mmol/L (3.3-5.1); Sodium 142 mmol/L (135-145); Total Protein 6.4 g/dL (6.5-8.0)
[2023-12-04] MEDS: iohexoL 350 MG/ML 100 ML INFUS..BTL IV (16:09)
[2023-12-04 17:25] VITALS: BP 144/85; PULSE 62; RESP 18; TEMP 36.5; O2SAT 98
[2023-12-04 17:48] VITALS: BP 140/82; PULSE 60; RESP 18; TEMP 36.6; O2SAT 98
== END 2023-12-04 17:49 | disposition home or self-care (01) ==
PROVIDERS: Physician Assistant Medical; Emergency Provider Emergency Medicine; PCP Family Medicine
DX: S20.312A Abrasion of left front wall of thorax, initial encounter (principal); S09.90XA Unspecified injury of head, initial encounter; R07.89 Other chest pain; R51.9 Headache, unspecified; M25.532 Pain in left wrist; M25.561 Pain in right knee; V29.99XA Rider (driver) (passenger) of other motorcycle injured in unspecified traffic accident, initial encounter; Y93.89 Activity, other specified; Y92.488 Other paved roadways as the place of occurrence of the external cause; Y99.8 Other external cause status; Z79.899 Other long term (current) drug therapy
CPT/HCPCS: 36415; 70450; 70486; 71260; 72125; 73110; 73130; 73564; 80053; 85025; 85610; 99284; Q9967

== ENCOUNTER 2024-03-02 07:57 | Outpatient (REF) | payer OTHER, SELFPAY ==
--- NOTE | ~2024-03-02 | US_ITS ---
EXAMINATION: US TRIPLEX LOWER EXTREMITY, LEFT CLINICAL INFORMATION: Follow-up on left leg DVT COMPARISON: Ultrasound left leg 08/19/2023. TECHNIQUE: Color-flow triplex imaging with spectral analysis and compression Doppler were performed on the left lower extremity. FINDINGS: Left common femoral, greater saphenous and proximal superficial vein are patent. 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 The other mid femoral vein has a chronic clot extending into the popliteal vein. Chronic popliteal vein clot was seen on the previous exam 08/19/2023. There is no Anthony's cyst. The soft tissues are normal. 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 The other superficial femoral vein is patent and compressible. The left common femoral, greater saphenous and proximal superficial femoral veins are patent. Electronically signed by: Jesse Sparks MD 03/02/2024 04:41 PM EST
== END 2024-03-02 07:58 | disposition home or self-care (01) ==
LOC: HO.US 07:57
PROVIDERS: PCP Family Medicine; Visit Provider Internal Medicine Medical Oncology
DX: I82.402 Acute embolism and thrombosis of unspecified deep veins of left lower extremity (principal)
CPT/HCPCS: 93971

== ENCOUNTER → 2024-03-02 16:00 | Outpatient (BNV) | payer OTHER, SELFPAY | PROVIDERS: PCP Family Medicine; Visit Provider Radiology Diagnostic Radiology | DX: I82.402 Acute embolism and thrombosis of unspecified deep veins of left lower extremity (principal) | CPT/HCPCS: 93971 ==

== ENCOUNTER 2024-05-15 08:55 | Outpatient (REF) | payer OTHER, SELFPAY ==
--- NOTE | ~2024-05-15 | US_ITS ---
CLINICAL HISTORY: N20.0 - Calculus of kidney US Renal Comparison: US/PA/SR - US RENAL BI - 03/10/23 11:42 EST Findings: Right kidney normal size and echotexture, 10.8 cm length. Interpolar renal cyst measuring 13 mm. Several nonobstructing right renal calculi measuring 5 mm, 5 mm, and 3 mm. Left kidney normal size and echotexture, 11.2 cm length. Interpolar/lower pole cyst measuring 9 mm. No hydronephrosis of either kidney. Normal color Doppler Incidental cyst within right hepatic lobe measuring 16 mm. IMPRESSION: 1. Nonobstructing bilateral renal calculi. This document has been electronically signed by: Jason Carlisle MD on 05/15/2024 15:27:38
== END 2024-05-15 08:56 | disposition home or self-care (01) ==
LOC: HO.US 08:55
PROVIDERS: PCP Family Medicine; Visit Provider Urology
DX: N20.0 Calculus of kidney (principal)
CPT/HCPCS: 76775

== ENCOUNTER → 2024-05-15 08:58 | Outpatient (BNV) | payer OTHER, SELFPAY | PROVIDERS: PCP Family Medicine; Visit Provider Radiology Diagnostic Radiology | DX: N20.0 Calculus of kidney (principal) | CPT/HCPCS: 76775 ==

== ENCOUNTER 2024-05-25 15:30 | Outpatient (AMB) | payer OTHER, SELFPAY ==
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
== END 2024-05-25 15:53 | disposition home or self-care (01) ==
LOC: HO.HUSH 15:31
PROVIDERS: PCP Family Medicine; Visit Provider Urology
DX: N20.0 Calculus of kidney (principal)
CPT/HCPCS: 99214

== ENCOUNTER → 2024-05-25 15:30 | Outpatient (BNVA) | payer OTHER, SELFPAY | PROVIDERS: PCP Family Medicine; Visit Provider Urology ==

== ENCOUNTER 2024-09-12 08:23 | Outpatient (REF) | payer OTHER, SELFPAY ==
--- NOTE | ~2024-09-12 | US_ITS ---
EXAMINATION: US TRIPLEX LOWER EXTREMITY, LEFT CLINICAL INFORMATION: History of DVT. COMPARISON: March 02, 2024 demonstrated chronic collapsed left lower extremity. TECHNIQUE: Color-flow triplex imaging with spectral analysis and compression Doppler were performed on the left lower extremity. FINDINGS: The interrogated veins included left common femoral vein, greater saphenous vein, femoral vein, popliteal vein, posterior tibialis and peroneal veins demonstrated partial compressibility and intraluminal hyperechoic/isoechoic abnormality from the popliteal vein to the femoral vein. 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 There is no Anthony's cyst. US/US venous duplex LE LT IMPRESSION: No acute deep venous thrombosis. Nonocclusive thrombus, chronic/old extending from the popliteal vein to the femoral vein. Electronically signed by: Filiberto Kelley MD 09/12/2024 09:52 AM EDT
== END 2024-09-12 08:24 | disposition home or self-care (01) ==
LOC: HO.US 08:23
PROVIDERS: PCP Family Medicine; Visit Provider Internal Medicine Medical Oncology
DX: I82.402 Acute embolism and thrombosis of unspecified deep veins of left lower extremity (principal)
CPT/HCPCS: 93971

== ENCOUNTER → 2024-09-12 08:24 | Outpatient (BNV) | payer OTHER, SELFPAY | PROVIDERS: PCP Family Medicine; Visit Provider Radiology Diagnostic Radiology | DX: I82.532 Chronic embolism and thrombosis of left popliteal vein (principal) | CPT/HCPCS: 93971 ==